=== PATIENT | female | born 1945 | race Caucasian/White ===

== ENCOUNTER 2020-12-04 08:48 | Outpatient (REF) | payer MEDICARE, OTHER, SELFPAY ==
[2020-12-04 10:51] LABS: MANUAL DIFF FLAG NO
[2020-12-04 11:00] LABS: Basophils Absolute Auto 0.1 X10*3/uL (0.0-0.2); Basophils Percent Auto 0.7 % (0-2); Eosinophils Absolute Auto 0.2 X10*3/uL (0.0-0.4); Eosinophils Percent Auto 2.3 % (0-4); Hematocrit 40.3 % (37-47); Hemoglobin 13.2 g/dl (12.0-16.0); Imm Gran Abs Auto 0.02 X10*3/uL (0.00-0.03); Imm Gran Pct Auto 0.3 % (0.0-0.4); Lymphocytes Absolute Auto 2.4 X10*3/uL (1.2-4.9); Lymphocytes Percent Auto 34.1 % (20-40); Mean Corpuscular HGB Conc 32.8 g/dl (31.0-35.0); Mean Corpuscular Hemoglobin 31.7 pg (27.0-33.0); Mean Corpuscular Volume 96.6 fL (80-98); Monocytes Absolute Auto 0.5 X10*3/uL (0.1-1.2); Monocytes Percent Auto 7.2 % (2-11); Neutrophils Absolute Auto 3.8 X10*3/uL (2.0-8.3); Neutrophils Percent Auto 55.4 % (45-73); Platelet Count 263 X10*3/uL (160-400); Red Blood Count 4.17 X10*6/uL (4.20-5.50); Red Cell Distribution Width 12.7 % (11.0-16.0); White Blood Count 6.9 X10*3/uL (4.8-10.8)
[2020-12-04 11:24] LABS: B Type Natriuretic Peptide 86 pg/mL (<100)
[2020-12-04 11:35] LABS: Alanine Aminotransferase 11 U/L (0-31); Albumin Level 4.2 g/dL (3.5-5.0); Alkaline Phosphatase 65 U/L (39-117); Anion Gap 15 (12-20); Aspartate Amino Transferase 11 U/L (5-31); Bilirubin Total 0.5 mg/dL (0.0-1.0); Blood Urea Nitrogen 20 mg/dL (9-16); Calcium 9.2 mg/dL (8.4-10.2); Carbon Dioxide 24 mmol/L (22-29); Chloride 105 mmol/L (96-108); Cholesterol 191 mg/dL; Estimated Glomerular Filt Rate > 60; Glucose Fasting 167 mg/dL (60-99); HDL Cholesterol 60 mg/dL; LDL Cholesterol Calculated 109 mg/dl; Potassium 4.3 mmol/L (3.3-5.1); Sodium 140 mmol/L (135-145); Total Protein 6.8 g/dL (6.5-8.0); Triglycerides 113 mg/dL
[2020-12-04 11:38] LABS: Creatinine Urine 92.06 mg/dL
[2020-12-04 11:39] LABS: T4 Thyroxine 6.5 ug/dL (4.5-12.0); Thyroid Stimulating Hormone 0.96 uIU/mL (0.32-4.0); Vitamin D 25-OH Total 13.4 ng/mL (>30)
[2020-12-04 12:08] LABS: Folate 19.7 ng/mL (> or = 4.0); Vitamin B12 608 pg/mL (200-900)
== END 2020-12-04 08:49 | disposition home or self-care (01) ==
LOC: HO.10HDL 08:48
PROVIDERS: Visit Provider Internal Medicine
DX: E11.65 Type 2 diabetes mellitus with hyperglycemia (principal); D12.6 Benign neoplasm of colon, unspecified; E78.00 Pure hypercholesterolemia, unspecified; I10 Essential (primary) hypertension; Z86.711 Personal history of pulmonary embolism
CPT/HCPCS: 36415; 80053; 80061; 82043; 82306; 82607; 82746; 83880; 84436; 84443; 85025

== ENCOUNTER 2021-09-28 08:14 | Outpatient (REF) | payer MEDICARE, OTHER, SELFPAY ==
[2021-09-28 10:27] LABS: Alanine Aminotransferase 12 U/L (0-31); Albumin Level 3.8 g/dL (3.5-5.0); Alkaline Phosphatase 51 U/L (39-117); Anion Gap 16 (12-20); Aspartate Amino Transferase 14 U/L (5-31); Bilirubin Total 0.5 mg/dL (0.0-1.0); Blood Urea Nitrogen 20 mg/dL (9-16); Calcium 9.5 mg/dL (8.4-10.2); Carbon Dioxide 24 mmol/L (22-29); Chloride 104 mmol/L (96-108); Cholesterol 176 mg/dL; Estimated Glomerular Filt Rate > 60; Glucose Random 146 mg/dL (60-115); HDL Cholesterol 61 mg/dL; LDL Cholesterol Calculated 92 mg/dl; Potassium 4.1 mmol/L (3.3-5.1); Sodium 140 mmol/L (135-145); Total Protein 6.6 g/dL (6.5-8.0); Triglycerides 115 mg/dL
== END 2021-09-28 08:15 | disposition home or self-care (01) ==
LOC: HO.10HDL 08:14
PROVIDERS: Visit Provider Internal Medicine
DX: E78.00 Pure hypercholesterolemia, unspecified (principal)
CPT/HCPCS: 36415; 80053; 80061

== ENCOUNTER 2022-09-23 08:10 | Outpatient (REF) | payer MEDICARE, OTHER, SELFPAY ==
[2022-09-23 10:38] LABS: MANUAL DIFF FLAG NO
[2022-09-23 10:49] LABS: Basophils Absolute Auto 0.1 X10*3/uL (0.0-0.2); Basophils Percent Auto 0.7 % (0-2); Eosinophils Absolute Auto 0.2 X10*3/uL (0.0-0.4); Hematocrit 35.8 % (37.0-47.0); Hemoglobin 11.9 g/dl (12.0-16.0); Imm Gran Abs Auto 0.02 X10*3/uL (0.00-0.03); Imm Gran Pct Auto 0.3 % (0.0-0.4); Lymphocytes Absolute Auto 2.7 X10*3/uL (1.2-4.9); Lymphocytes Percent Auto 36.7 % (20-40); Mean Corpuscular HGB Conc 33.2 g/dl (31.0-35.0); Mean Corpuscular Hemoglobin 32.7 pg (27.0-33.0); Mean Corpuscular Volume 98.4 fL (80.0-98.0); Mean Platelet Volume 10.5 fL (9.4-12.3); Monocytes Absolute Auto 0.6 X10*3/uL (0.1-1.2); Monocytes Percent Auto 8.5 % (2-11); Neutrophils Absolute Auto 3.8 x10*3/uL (2.0-8.3); Neutrophils Percent Auto 50.8 % (45-73); Platelet Count 259 X10*3/uL (160-400); Red Blood Count 3.64 X10*6/uL (4.20-5.50); Red Cell Distribution Width 12.7 % (11.0-16.0); White Blood Count 7.4 X10*3/uL (4.8-10.8)
[2022-09-23 12:22] LABS: Alanine Aminotransferase 13 U/L (0-31); Albumin Level 4.1 g/dL (3.5-5.0); Alkaline Phosphatase 49 U/L (39-117); Anion Gap 15 (12-20); Aspartate Amino Transferase 16 U/L (5-31); Bilirubin Total 0.4 mg/dL (0.0-1.0); Blood Urea Nitrogen 20 mg/dL (9-16); Calcium 9.5 mg/dL (8.4-10.2); Carbon Dioxide 24 mmol/L (22-29); Chloride 104 mmol/L (96-108); Cholesterol 181 mg/dL; Estimated Glomerular Filt Rate > 60; Glucose Random 127 mg/dL (60-115); HDL Cholesterol 68 mg/dL; LDL Cholesterol Calculated 95 mg/dl; Potassium 4.5 mmol/L (3.3-5.1); Sodium 138 mmol/L (135-145); Thyroid Stimulating Hormone 0.78 uIU/mL (0.32-4.0); Total Protein 6.7 g/dL (6.5-8.0); Triglycerides 91 mg/dL; Vitamin D 25-OH Total 36.9 ng/mL (>30)
[2022-09-23 12:33] LABS: Estimated Average Glucose 126 mg/dL; Folate 17.1 ng/mL (> or = 4.0); Vitamin B12 573 pg/mL (200-900)
[2022-09-23 18:29] LABS: Creatinine Urine 88.97 mg/dL
[2022-09-23 18:40] LABS: Microalbum/Creatinine Ratio Ur 996.9 ug/mg cr
== END 2022-09-23 08:11 | disposition home or self-care (01) ==
LOC: HO.10HDL 08:10
PROVIDERS: Visit Provider Internal Medicine
DX: E11.65 Type 2 diabetes mellitus with hyperglycemia (principal); E78.00 Pure hypercholesterolemia, unspecified; I10 Essential (primary) hypertension
CPT/HCPCS: 36415; 80053; 80061; 82043; 82306; 82607; 82746; 83036; 84443; 85025

== ENCOUNTER 2023-09-29 11:31 | Outpatient (AMB) | payer MEDICARE, OTHER, SELFPAY ==
--- NOTE | 2023-09-29 11:37 | MHC.PC.OV ---
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 Mechanic Required: No Accompanied by: Self / Same As Patient Allergies rosuvastatin Allergy (Unknown, Verified 09/29/23 11:39) Unknown tramadol Allergy (Unknown, Verified 09/29/23 11:39) joint pain Tobacco use date assessed: 09/29/23 Fall risk assessment: No Falls in past year Last assessed Fall Risk: 09/29/23 Dental Screening Dental Screen Date: 09/29/23 Did you have a dental visit in the last 12 months?: Yes Did you have a dental problem in the last 6 months where you did not have access to dental care?: No Was dental information given to patient?: Patient has dentist HPI 6 MONTH F/U HPI Details 78-year-old obese female with controlled diabetes mellitus hypertension hypercholesterolemia history of pulmonary embolism and peripheral vascular disease last seen in March 2023. Patient's mammogram is due colonoscopy is up-to-date October 2019 and declined bone density. COVID vaccine July 2023- does not get flu shots [facility] Medical History (Updated 09/29/23 @ 12:33 by Erika De La O MD) Medicare annual wellness visit, initial Facial basal cell cancer Peripheral vascular disease Hypercholesterolemia Diabetic nephropathy Gout History of pulmonary embolism DVT (deep venous thrombosis) Osteoarthritis Hypertension Type 2 diabetes mellitus with hyperglycemia Surgical History History of arthroscopy of right knee Family History Father Diabetes CVD (cardiovascular disease) Stroke Mother Hypertension Social History Housing: House Alcohol intake: current Alcohol intake frequency: 0-2 drinks per day Alcohol type: wine Patient Tobacco Use Status: Never used Tobacco e-Cigarette/Vaping Use: Never Used Second Hand Smoke Exposure: No service: No Current occupational status: retired Cognitive needs: No Hearing needs: No Vision needs: Yes Questionnaire Thrive Questionnaire Date Thrive assessed: 03/19/22 JOSEF-7 AMB Questionnaire JOSEF-7 Date JOSEF - 7 assessed: 03/22/23 Source: Developed by Drs. Yahir Jones, Shi Godfrey, Vasile Antonio and colleagues, with an educational jose francisco from [employer]. Physical exam (Primary Care) Vital Signs: Last Vital Signs Pulse 69 09/29/23 11:38 BP 180/106 H 09/29/23 11:38 Pulse Ox 98 09/29/23 11:38 Oxygen Delivery Method Room Air 09/29/23 11:38 Tobacco/Smoking Status: Tobacco use Status Tobacco use date assessed 09/29/23 09/29/23 11:40 Patient Tobacco Use Status Never used Tobacco 09/29/23 11:40 e-Cigarette/Vaping Use Never Used 09/29/23 11:40 Thrive Assessment: Date of Thrive Assessment Date Thrive assessed 03/19/22 09/29/23 11:40 Const General: alert; No acute distress Eyes Conjunctivae: conjunctivae normal Resp Auscultation: clear to auscultation bilaterally Cardio Rate: regular rate Rhythm: regular rhythm GI Inspection: Yes normal to inspection Extrem General: Yes normal to inspection and No edema Results AMB Hemoglobin A1c AMB Hemoglobin A1c 6.3 % Last Edit by Gail Nguyen on 09/29/23 11:58 Results Reviewed Results Reviewed: Laboratory Last Values Hgb A1c (Clinic) 6.3 % (4.0-6.0) H 09/29/23 11:38 Assessment and Plan Assessment & Plan (1) Type 2 diabetes mellitus with hyperglycemia: Comment: Dr. Price October, Code(s): E11.65 - Type 2 diabetes mellitus with hyperglycemia Qualifiers: Diabetes mellitus skilled nursing insulin use: without skilled nursing use Qualified Code(s): E11.65 - Type 2 diabetes mellitus with hyperglycemia Plan: Decrease the amount of carbohydrate intake, pasta, bread, rice and potatoes are all sugar and that is aside from all the sweet stuff, remember that fruits are good but they are Sweet also. Hemoglobin A1c goal of less than 7.0. Patient presently on metformin 500 mg once a day (2) Hypertension: Code(s): I10 - Essential (primary) hypertension Qualifiers: Hypertension type: essential hypertension Qualified Code(s): I10 - Essential (primary) hypertension Plan: Continue with blood pressure medication. Decrease salt intake and exercise on hydralazine 25 mg twice a day hydrochlorothiazide 25 mg once a day olmesartan 40 mg once a day discussed the concerns about blood pressure is going high this time. Will workup ultrasound of the renal vasculature as well as aldosterone. (3) History of pulmonary embolism: Comment: September 2007 Code(s): Z86.711 - Personal history of pulmonary embolism Plan: Continue with anticoagulation with Xarelto semi annual renal function test (4) Hypercholesterolemia: Code(s): E78.00 - Pure hypercholesterolemia, unspecified Plan: Avoid fried foods, chicken skin, eggs, butter margarine, pastries and meat. Be it pork or beef they have a lot of cholesterol patient takes Welchol had problems with rosuvastatin. (5) Knee pain, right: Code(s): M25.561 - Pain in right knee Plan: discussed about voltaren gel and chondroitin glucosamine Orders: Orders Complete Blood Count Auto Diff Today E11.65 - Type 2 diabetes mellitus with hyperglycemia Free T4 (Free Thyroxine) Today E11.65 - Type 2 diabetes mellitus with hyperglycemia Lipid Panel Today E11.65 - Type 2 diabetes mellitus with hyperglycemia, E78.00 - Pure hypercholesterolemia, unspecified Hemoglobin A1c Today E11.65 - Type 2 diabetes mellitus with hyperglycemia Aldost/Renin Today I10 - Essential (primary) hypertension US renal BI Today I10 - Essential (primary) hypertension US renal doppler Today I10 - Essential (primary) hypertension AMB Hemoglobin A1c Today Z13.9 - Encounter for screening, unspecified Comprehensive Met. Panel Today E11.65 - Type 2 diabetes mellitus with hyperglycemia Microalbumin, Random (w Creat) Today E11.65 - Type 2 diabetes mellitus with hyperglycemia Creatinine Urine Today E11.65 - Type 2 diabetes mellitus with hyperglycemia Thyroid Stimulating Hormone Today E11.65 - Type 2 diabetes mellitus with hyperglycemia Vitamin B12 and Folate Today E11.65 - Type 2 diabetes mellitus with hyperglycemia Vitamin D 25-OH Total Today E11.65 - Type 2 diabetes mellitus with hyperglycemia Cortisol, Free Today I10 - Essential (primary) hypertension Coding Level of Care Code Est Pt Level 4 (25019) Diagnoses Type 2 diabetes mellitus with hyperglycemia, without long-term current use of insulin E11.65 Diabetes mellitus skilled nursing insulin use: without terminal supervisor use Essential hypertension I10 Hypertension type: essential hypertension History of pulmonary embolism Z86.711 Hypercholesterolemia E78.00 Knee pain, right M25.561
[2023-09-29 11:38] VITALS: BP 180/106; PULSE 69; O2SAT 98
== END 2023-09-29 12:45 | disposition home or self-care (01) ==
PROVIDERS: PCP Internal Medicine; Visit Provider Internal Medicine
DX: E11.65 Type 2 diabetes mellitus with hyperglycemia (principal); I10 Essential (primary) hypertension; Z86.711 Personal history of pulmonary embolism; M25.561 Pain in right knee
CPT/HCPCS: 83036; 99214

== ENCOUNTER 2023-11-03 08:56 | Outpatient (REF) | payer MEDICARE, OTHER, SELFPAY ==
--- NOTE | ~2023-11-03 | US_ITS ---
EXAMINATION: ULTRASOUND RENAL WITH DOPPLER CLINICAL INFORMATION: Hypertension. COMPARISON: None. TECHNIQUE: Real-time grayscale, color Doppler, and duplex Doppler evaluation of the kidneys and renal vasculature was performed. FINDINGS: RENAL MEASUREMENTS: Right: 11.3 x 4.7 x 5.6 cm (Sag x AP x TV) Left: 10.5 x 5.5 x 4.8 cm (Sag x AP x TV) The renal parenchyma appears normal. No hydronephrosis or nephrolithiasis. DOPPLER INTERROGATION: AORTA: Mid aorta: 135 cm/sec RIGHT MAIN RENAL ARTERY: Proximal: 178 cm/sec Mid: 95 cm/sec Distal: 182 cm/sec LEFT MAIN RENAL ARTERY: Proximal: 121 cm/sec Mid: 59 cm/sec Distal: 110 cm/sec RENAL-AORTIC RATIO (RAR): Right: Not calculated due to mid aortic velocity outside of range 40-100 cm/s making RAR inaccurate. Left: Not calculated due to mid aortic velocity outside of range 40-100 cm/s making RAR inaccurate. SEGMENTAL RESISTIVE INDICES: Right: 0.58-0.84 Left: 0.62-0.82 RENAL VEINS: Right: Patent with normal waveform. Left: Patent with normal waveform. US/US renal BI IMPRESSION: Elevated right renal artery velocities suggesting stenosis. Renal lengths are symmetric. Consider further evaluation with CTA of the abdomen without and with contrast.
--- NOTE | ~2023-11-03 | US_ITS ---
EXAMINATION: ULTRASOUND RENAL WITH DOPPLER CLINICAL INFORMATION: Hypertension. COMPARISON: None. TECHNIQUE: Real-time grayscale, color Doppler, and duplex Doppler evaluation of the kidneys and renal vasculature was performed. FINDINGS: RENAL MEASUREMENTS: Right: 11.3 x 4.7 x 5.6 cm (Sag x AP x TV) Left: 10.5 x 5.5 x 4.8 cm (Sag x AP x TV) The renal parenchyma appears normal. No hydronephrosis or nephrolithiasis. DOPPLER INTERROGATION: AORTA: Mid aorta: 135 cm/sec RIGHT MAIN RENAL ARTERY: Proximal: 178 cm/sec Mid: 95 cm/sec Distal: 182 cm/sec LEFT MAIN RENAL ARTERY: Proximal: 121 cm/sec Mid: 59 cm/sec Distal: 110 cm/sec RENAL-AORTIC RATIO (RAR): Right: Not calculated due to mid aortic velocity outside of range 40-100 cm/s making RAR inaccurate. Left: Not calculated due to mid aortic velocity outside of range 40-100 cm/s making RAR inaccurate. SEGMENTAL RESISTIVE INDICES: Right: 0.58-0.84 Left: 0.62-0.82 RENAL VEINS: Right: Patent with normal waveform. Left: Patent with normal waveform. US/US renal doppler IMPRESSION: Elevated right renal artery velocities suggesting stenosis. Renal lengths are symmetric. Consider further evaluation with CTA of the abdomen without and with contrast.
== END 2023-11-03 08:57 | disposition home or self-care (01) ==
LOC: HO.US 08:56
PROVIDERS: PCP Internal Medicine; Visit Provider Internal Medicine
DX: I10 Essential (primary) hypertension (principal)
CPT/HCPCS: 76775; 93975

== ENCOUNTER 2023-12-14 09:27 | Outpatient (REF) | payer MEDICARE, OTHER, SELFPAY ==
[2023-12-15 08:50] LABS: Creatinine POC 0.8 mg/dL (0.5-1.4); GFR POC 60
== END 2023-12-14 09:28 | disposition home or self-care (01) ==
LOC: HO.CT 09:27
PROVIDERS: PCP Internal Medicine; Visit Provider Internal Medicine
DX: I70.1 Atherosclerosis of renal artery (principal)
CPT/HCPCS: 82565

== ENCOUNTER 2023-12-29 08:27 | Outpatient (REF) | payer MEDICARE, OTHER, SELFPAY ==
[2023-12-29 10:56] LABS: MANUAL DIFF FLAG NO
[2023-12-29 11:01] LABS: Basophils Absolute Auto 0.1 X10*3/uL (0.0-0.2); Basophils Percent Auto 0.7 % (0-2); Eosinophils Absolute Auto 0.1 X10*3/uL (0.0-0.4); Eosinophils Percent Auto 1.9 % (0-4); Hemoglobin 12.1 g/dl (12.0-16.0); Imm Gran Abs Auto 0.02 X10*3/uL (0.00-0.03); Imm Gran Pct Auto 0.3 % (0.0-0.4); Lymphocytes Absolute Auto 2.3 X10*3/uL (1.2-4.9); Lymphocytes Percent Auto 34.5 % (20-40); Mean Corpuscular HGB Conc 33.6 g/dl (31.0-35.0); Mean Corpuscular Hemoglobin 33.1 pg (27.0-33.0); Mean Corpuscular Volume 98.4 fL (80.0-98.0); Mean Platelet Volume 10.1 fL (9.4-12.3); Monocytes Absolute Auto 0.6 X10*3/uL (0.1-1.2); Monocytes Percent Auto 9.1 % (2-11); Neutrophils Absolute Auto 3.6 x10*3/uL (2.0-8.3); Neutrophils Percent Auto 53.5 % (45-73); Platelet Count 252 X10*3/uL (160-400); Red Blood Count 3.66 X10*6/uL (4.20-5.50); Red Cell Distribution Width 13.1 % (11.0-16.0); White Blood Count 6.7 X10*3/uL (4.8-10.8)
[2023-12-29 11:18] LABS: Estimated Average Glucose 117 mg/dL; Hemoglobin A1c % 5.7 % (<6.0)
[2023-12-29 11:38] LABS: Alanine Aminotransferase 13 U/L (0-31); Alkaline Phosphatase 50 U/L (39-117); Anion Gap 14 (12-20); Aspartate Amino Transferase 19 U/L (5-31); Bilirubin Total 0.4 mg/dL (0.0-1.0); Blood Urea Nitrogen 14 mg/dL (9-16); Calcium 9.4 mg/dL (8.4-10.2); Carbon Dioxide 24 mmol/L (22-29); Chloride 104 mmol/L (96-108); Cholesterol 174 mg/dL (<200); Estimated Glomerular Filt Rate > 60; Glucose Random 120 mg/dL (60-115); HDL Cholesterol 75 mg/dL (>40); LDL Cholesterol Calculated 86 mg/dL (<100); Potassium 4.4 mmol/L (3.3-5.1); Sodium 138 mmol/L (135-145); Total Protein 7.1 g/dL (6.5-8.0); Triglycerides 69 mg/dL (<150)
[2023-12-29 12:01] LABS: Free T4 (Free Thyroxine) 1.01 ng/dL (0.71-1.85); Thyroid Stimulating Hormone 0.88 uIU/mL (0.32-4.0); Vitamin D 25-OH Total 35.8 ng/mL (>30)
[2023-12-29 12:16] LABS: Vitamin B12 596 pg/mL (200-900)
[2024-01-10 13:49] LABS: Aldosterone/Renin Ratio 5.3 Ratio (0.9-28.9); Plasma Renin Activity 1.14 ng/mL/h (0.25-5.82)
== END 2023-12-29 08:28 | disposition home or self-care (01) ==
LOC: HO.10HDL 08:27
PROVIDERS: Visit Provider Internal Medicine
DX: E11.65 Type 2 diabetes mellitus with hyperglycemia (principal); E78.00 Pure hypercholesterolemia, unspecified; I10 Essential (primary) hypertension
CPT/HCPCS: 36415; 80053; 80061; 82088; 82306; 82530; 82607; 82746; 83036; 84439; 84443; 85025

== ENCOUNTER 2023-12-30 11:36 | Outpatient (AMB) | payer MEDICARE, OTHER, SELFPAY ==
[2023-12-30 12:05] VITALS: BP 182/98; PULSE 114; O2SAT 98
--- NOTE | 2023-12-30 12:05 | MHC.PC.OV ---
Vital Signs 12/30/23 12:05 Height 5 ft 9 in BMI Reason not done Patient refused/unable BP 182/98 H Blood Pressure Location Lt brachial Position Sitting Pulse 114 H Pulse Source Pulse Oximeter Pulse Oximetry (%) 98 Oxygen Delivery Method Room Air Intake Visit Reasons: Hypertension Allergies rosuvastatin Allergy (Unknown, Verified 12/30/23 12:07) Unknown tramadol Allergy (Unknown, Verified 12/30/23 12:07) joint pain Medication List - Last Reconciled 12/30/23 by Erika De La O MD acetaminophen (Tylenol Extra Strength) 1,000 mg PO Q6H PRN atorvastatin 80 mg PO DAILY blood sugar diagnostic As directed check the blood sugar once a day [email or web address] ULTRA TEST STRIPS cholecalciferol (vitamin D3) 50 mcg PO DAILY colesevelam (WelChol) 1,875 mg (3 x 625 mg) PO BID 90 days [email or web address],knee,reg,xlrg As directed 20-30 mm hg folic acid 1 mg PO DAILY hydralazine 25 mg PO BID hydrochlorothiazide 25 mg PO QAM hydrocodone-chlorpheniramine 10-8 mg/5 mL 5 mL PO Q12H PRN lancets (Wellpe[employer]) check the BS once a day lancets (FreeStyle Lancets) As directed check the BS QD metformin 500 mg PO DAILY olmesartan 40 mg PO DAILY rivaroxaban (Xarelto) 20 mg PO DAILY Tobacco use date assessed: 12/30/23 Fall risk assessment: No Falls in past year Last assessed Fall Risk: 12/30/23 Dental Screening Dental Screen Date: 12/30/23 Did you have a dental visit in the last 12 months?: Yes Did you have a dental problem in the last 6 months where you did not have access to dental care?: No Was dental information given to patient?: Patient has dentist HPI Hypertension HPI Details 78-year-old obese female with diabetes mellitus hypertension history of pulmonary embolism hypercholesterolemia coming in for follow-up. Last seen in September 2023 declined mammogram colonoscopy is up-to-date. Patient had an ultrasound of the kidneys showing an elevated right renal artery velocity suggesting stenosis advised to get a CTA. CTA not done due to iv cannot access now here. Patient had an unpleasant episode in the CT scan as they can not get IV access and has tried multiple/multiple/multiple times and so this was canceled. Meanwhile blood pressure remains to be elevated has a dental procedure but discussed that the dental procedure might get cancel due to blood pressure being elevated. Patient is being referred to Nephrology for options being that the ultrasound was done showing possible renal artery stenosis. Meanwhile blood work was done. [facility] Medical History (Updated 11/03/23 @ 18:15 by Erika De La O MD) Medicare annual wellness visit, initial Facial basal cell cancer Peripheral vascular disease Hypercholesterolemia Diabetic nephropathy Gout History of pulmonary embolism DVT (deep venous thrombosis) Osteoarthritis Hypertension Type 2 diabetes mellitus with hyperglycemia Surgical History History of arthroscopy of right knee Family History Father Diabetes CVD (cardiovascular disease) Stroke Mother Hypertension Social History Housing: House Alcohol intake: current Alcohol intake frequency: 0-2 drinks per day Alcohol type: wine Patient Tobacco Use Status: Never used Tobacco e-Cigarette/Vaping Use: Never Used Second Hand Smoke Exposure: No service: No Current occupational status: retired Cognitive needs: No Hearing needs: No Vision needs: Yes Questionnaire PHQ-9 Over the last 2 weeks, how often have you been bothered by any of the following problems? 1. Little interest or pleasure in doing things: not at all 2. Feeling down, depressed, or hopeless: several days 3. Trouble falling or staying asleep, or sleeping too much: not at all 4. Feeling tired or having little energy: not at all 5. Poor appetite or overeating: several days 6. Feeling bad about yourself - or that you are a failure or have let yourself or your family down: not at all 7. Trouble concentrating on things, such as reading the newspaper or watching television: not at all 8. Moving or speaking so slowly that other people could have noticed. Or the opposite - being so fidgety or restless that you have been moving around a lot more than usual: not at all 9. Thoughts that you would be better off or of hurting yourself in some way: not at all Total score: 2 Depression Screening Interpretation: Negative Depression Screening Done: Yes Source: Developed by Drs. Yahir Jones, Shi Godfrey, Vasile Antonio and colleagues, with an educational jose francisco from [employer]. Thrive Questionnaire Date Thrive assessed: 12/30/23 I am a: Patient What is your living situation today?: I have a steady place to live Within the past 12 months, did the food you bought not last and you didn't have the money to get more?: Never true Within the past 12 months, did you worry whether your food would run out before you got money to buy more?: Never true Do you have trouble paying for medicines?: No Do you have trouble getting transportation to medical appointments?: No Do you have trouble paying your heating and electricity bill?: No Do you have trouble taking care of your child, family member or friend?: No Do you have trouble with day-to-day activities such as bathing, preparing meals, shopping, managing finances, etc.?: No Are you currently unemployed and looking for a job?: No Are you interested in more education?: No Currently or been in a relationship where the following occur: no concerns reported THRIVE Score: 0 AUDIT C Alcohol Use Questionnaire (AUDIT-C) 1. How often do you have a drink containing alcohol?: Never 3. How often do you have six or more drinks on one occasion?: Never Total Score: 0 JOSEF-7 AMB Questionnaire JOSEF-7 Date JOSEF - 7 assessed: 12/30/23 Feeling nervous, anxious, or on edge: 0 = Not at all Not being able to stop or control worryin = Not at all Worrying too much about different things: 0 = Not at all Trouble relaxin = Not at all Being so restless that it is hard to sit still: 0 = Not at all Becoming easily annoyed or irritable: 0 = Not at all Feeling afraid as if something awful might happen: 0 = Not at all Total JOSEF-7 score (0-4 normal; 5-9 mild; 10-14 moderate; 15-21 severe): 0 Source: Developed by Shi Wu, Vasile Antonio and colleagues, with an educational jose francisco from [employer]. Physical exam (Primary Care) Vital Signs: Last Vital Signs Pulse 114 H 12/30/23 12:05 BP 182/98 H 12/30/23 12:05 Pulse Ox 98 12/30/23 12:05 Oxygen Delivery Method Room Air 12/30/23 12:05 Tobacco/Smoking Status: Tobacco use Status Tobacco use date assessed 12/30/23 12/30/23 12:12 Patient Tobacco Use Status Never used Tobacco 12/30/23 12:12 e-Cigarette/Vaping Use Never Used 12/30/23 12:12 PHQ-9: PHQ-9 Score PHQ-9: Total score 2 12/30/23 12:12 Depression Screening Interpretation: Negative Thrive Assessment: Date of Thrive Assessment Date Thrive assessed 12/30/23 12/30/23 12:12 Currently or been in a relationship where the following occur: no concerns reported Const General: alert; No acute distress Eyes Conjunctivae: conjunctivae normal Resp Auscultation: clear to auscultation bilaterally Cardio Rate: regular rate Rhythm: regular rhythm GI Inspection: Yes normal to inspection Extrem General: Yes normal to inspection and No edema Assessment and Plan Assessment & Plan (1) Type 2 diabetes mellitus with hyperglycemia: Comment: Dr. Price October, Code(s): E11.65 - Type 2 diabetes mellitus with hyperglycemia Qualifiers: Diabetes mellitus detention insulin use: without medical terminologist use Qualified Code(s): E11.65 - Type 2 diabetes mellitus with hyperglycemia Plan: Decrease the amount of carbohydrate intake, pasta, bread, rice and potatoes are all sugar and that is aside from all the sweet stuff, remember that fruits are good but they are Sweet also. Hemoglobin A1c goal of less than 7.0 patient on metformin 500 mg once a day (2) Hypertension: Code(s): I10 - Essential (primary) hypertension Qualifiers: Hypertension type: essential hypertension Qualified Code(s): I10 - Essential (primary) hypertension Plan: Continue with blood pressure medication. Decrease salt intake and exercise on olmesartan 40 mg once a day hydrochlorothiazide 25 mg once a day hydralazine 25 mg twice a day. Workup showed a question of right renal artery stenosis has been advised to have CTA but this was not successful due to no IV access. (3) Hypercholesterolemia: Code(s): E78.00 - Pure hypercholesterolemia, unspecified Plan: Avoid fried foods, chicken skin, eggs, butter margarine, pastries and meat. Be it pork or beef they have a lot of cholesterol presently on atorvastatin 80 mg once a day LDL goal of less than 100 (4) Right renal artery stenosis: Code(s): I70.1 - Atherosclerosis of renal artery Plan: Patient was advised to get a workup for CT scan. Will do a referral to Nephrology for options. Orders: Referrals Nephrology Referral I70.1 - Atherosclerosis of renal artery Coding Level of Care Code Est Pt Level 4 (01273) Diagnoses Type 2 diabetes mellitus with hyperglycemia, without long-term current use of insulin E11.65 Diabetes mellitus detention insulin use: without medical terminologist use Essential hypertension I10 Hypertension type: essential hypertension Hypercholesterolemia E78.00 Right renal artery stenosis I70.1
== END 2023-12-30 12:58 | disposition home or self-care (01) ==
PROVIDERS: PCP Internal Medicine; Visit Provider Internal Medicine
DX: E11.65 Type 2 diabetes mellitus with hyperglycemia (principal); I10 Essential (primary) hypertension; E78.00 Pure hypercholesterolemia, unspecified; I70.1 Atherosclerosis of renal artery
CPT/HCPCS: 99214

== ENCOUNTER 2024-01-24 13:32 | Outpatient (AMB) | payer MEDICARE, OTHER, SELFPAY ==
[2024-01-24 13:34] VITALS: BP 170/98; PULSE 138; O2SAT 98; BMI 28.4
--- NOTE | 2024-01-24 13:34 | HO.NEPHOV_ITS ---
HPI HPI Comments History of Present Illness Details Gillian is a elderly woman with a history of longstanding hypertension. She is on 3 medications including hydralazine 25 mg b.i.d., Benicar 40 mg q.d. and HCTZ 25 mg. In spite of this blood pressure has been difficult to control. She had renal ultrasonogram which was suggestive of right-sided renal artery stenosis based on increased resistance. CT scan was ordered. However the posterior was not completed due to the inability to obtain IV access. After multiple attempts the venipuncture was abandoned and she was sent home. She has significant history of anxiety with high blood pressure. She has not checked her blood pressure at home. Apparently in the past she has had a 24 hour ABP M. I do not have access to the results. No headache nausea vomiting. No fever She has lost about 25 lb and her appetite has decreased. All the recent blood work was reviewed. This is a family history of diabetes mellitus. 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 [facility] Medical History Medicare annual wellness visit, initial Facial basal cell cancer Peripheral vascular disease Hypercholesterolemia Diabetic nephropathy Gout History of pulmonary embolism DVT (deep venous thrombosis) Osteoarthritis Hypertension Type 2 diabetes mellitus with hyperglycemia Surgical History History of arthroscopy of right knee Family History Father Diabetes CVD (cardiovascular disease) Stroke Mother Hypertension Social History Housing: House Alcohol intake: current Alcohol intake frequency: 0-2 drinks per day Alcohol type: wine Patient Tobacco Use Status: Never used Tobacco e-Cigarette/Vaping Use: Never Used Second Hand Smoke Exposure: No service: No Current occupational status: retired Cognitive needs: No Hearing needs: No Vision needs: Yes Vital Signs 01/24/24 13:34 Height 5 ft 9 in Weight 192 lb BMI 28.4 BP 170/98 H Blood Pressure Location Lt brachial Position Sitting Pulse 138 H Pulse Source Pulse Oximeter Pulse Oximetry (%) 98 Oxygen Delivery Method Room Air Physical Exam Vital Signs: Last Vital Signs Pulse 138 H 04/09/24 13:34 BP 170/98 H 04/09/24 13:34 Pulse Ox 98 01/24/24 13:34 Oxygen Delivery Method Room Air 01/24/24 13:34 BMI result Body Mass Index 28.4 Repeat blood pressure 180/90 mm Hg sitting and 180/90 mm Hg standing. Asymptomatic Const General: healthy appearing and anxious Nutritional Appearance: well nourished Orientation/consciousness: patient oriented x3 HEENT Head: No normal to inspection Mouth: moist mucous membranes Neck Neck: Yes supple and Yes no JVD Resp Auscultation: clear to auscultation bilaterally, no rales and rub present Cardio Jugular venous distension: no JVD Palpation: no palpable S3 and no palpable S4 Heart sounds: no rubs GI Palpation (GI): Soft to palpation and nontender Percussion: No Fluid wave present General: Yes no CVA tenderness Back/Spine/Pelvis Back: no CVA tenderness Skin General skin exam: no rashes or lesions noted Neuro General: patient oriented x3 Extrem General: Yes no pedal edema and No clubbing Assessment & Plan Assessment & Plan (1) Hypertension: Code(s): I10 - Essential (primary) hypertension Qualifiers: Hypertension type: essential hypertension Qualified Code(s): I10 - Essential (primary) hypertension Plan Elderly woman with resistant hypertension. Doppler of renal arteries was suggestive of possible right renal artery stenosis. PA and PRA ratios were normal. Not suggestive of hyperaldosteronism or renal artery stenosis. First step would be to rule out white coat hypertension in this elderly woman with significant anxiety. I have asked her to monitor her blood pressure at home for next 1 week. Based on this we can consider a 24 hour ABP him. If the home blood pressure readings are elevated we will proceed with further workup including a CT angiogram or an MRA of renal arteries. In the meantime I have asked her to stay on low-sodium diet. We will continue with the current medications. Based on home blood pressure readings I will be adjusting her medications. I have reassured her. Answered all her questions. Coding Level of Care Code New Pt Level 4 (64680) Diagnoses Essential hypertension I10 Hypertension type: essential hypertension Results Reviewed Nephrology Results: Hgb 12.1 g/dl (12.0-16.0) 12/29/23 WBC 6.7 X10*3/uL (4.8-10.8) 12/29/23 Plt Count 252 X10*3/uL (160-400) 12/29/23 Sodium 138 mmol/L (135-145) 12/29/23 Potassium 4.4 mmol/L (3.3-5.1) 12/29/23 Chloride 104 mmol/L (96-108) 12/29/23 Carbon Dioxide 24 mmol/L (22-29) 12/29/23 BUN 14 mg/dL (9-16) 12/29/23 Creatinine 0.64 mg/dL (0.5-1.4) 12/29/23 Calcium 9.4 mg/dL (8.4-10.2) 12/29/23 Urine Creatinine 88.97 mg/dL 09/23/22 Renal US 11/03/23
== END 2024-01-24 14:07 | disposition home or self-care (01) ==
PROVIDERS: PCP Internal Medicine; Referring Provider Internal Medicine; Visit Provider Internal Medicine Hypertension Specialist
DX: I10 Essential (primary) hypertension (principal)
CPT/HCPCS: 99204

== ENCOUNTER → 2024-01-24 13:32 | Outpatient (BNVA) | payer MEDICARE, OTHER, SELFPAY | PROVIDERS: PCP Internal Medicine; Referring Provider Internal Medicine; Visit Provider Internal Medicine Hypertension Specialist | DX: I10 Essential (primary) hypertension (principal) | CPT/HCPCS: 99202 ==

== ENCOUNTER 2024-01-31 14:44 | Outpatient (AMB) | payer MEDICARE, OTHER, SELFPAY ==
[2024-01-31 14:46] VITALS: BP 198/118; PULSE 97; O2SAT 96; BMI 27.8
--- NOTE | 2024-01-31 14:46 | HO.NEPHOV ---
HPI HPI Comments History of Present Illness Details Gillian is a pleasant 78 yr old woman with a history of longstanding hypertension. She is on 3 medications including hydralazine 25 mg b.i.d., Benicar 40 mg q.d. and HCTZ 25 mg. In spite of this blood pressure has been difficult to control. She had renal ultrasonogram which was suggestive of right-sided renal artery stenosis based on increased resistance. CT scan was ordered. However the posterior was not completed due to the inability to obtain IV access. After multiple attempts the venipuncture was abandoned and she was sent home. She has significant history of anxiety with high blood pressure. She has not checked her blood pressure at home. Apparently in the past she has had a 24 hour ABP M. I do not have access to the results. No headache nausea vomiting. No fever She has lost about 25 lb and her appetite has decreased. All the recent blood work was reviewed. This is a family history of diabetes mellitus. 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 01/31/24 Currently having allergic symptoms She has monitored her BP at home and readings are sub optimal [facility] Medical History Medicare annual wellness visit, initial Facial basal cell cancer Peripheral vascular disease Hypercholesterolemia Diabetic nephropathy Gout History of pulmonary embolism DVT (deep venous thrombosis) Osteoarthritis Hypertension Type 2 diabetes mellitus with hyperglycemia Surgical History History of arthroscopy of right knee Family History Father Diabetes CVD (cardiovascular disease) Stroke Mother Hypertension Social History Housing: House Alcohol intake: current Alcohol intake frequency: 0-2 drinks per day Alcohol type: wine Patient Tobacco Use Status: Never used Tobacco e-Cigarette/Vaping Use: Never Used Second Hand Smoke Exposure: No service: No Current occupational status: retired Cognitive needs: No Hearing needs: No Vision needs: Yes Vital Signs 01/31/24 14:46 Height 5 ft 9 in Weight 188 lb BMI 27.8 BP 198/118 H Blood Pressure Location Lt brachial Position Sitting Pulse 97 Pulse Source Pulse Oximeter Pulse Oximetry (%) 96 Oxygen Delivery Method Room Air Physical Exam Vital Signs: Last Vital Signs Pulse 97 01/31/24 14:46 BP 198/118 H 01/31/24 14:46 Pulse Ox 96 01/31/24 14:46 Oxygen Delivery Method Room Air 01/31/24 14:46 BMI result Body Mass Index 27.8 Assessment & Plan Assessment & Plan (1) Hypertension: Code(s): I10 - Essential (primary) hypertension Qualifiers: Hypertension type: essential hypertension Qualified Code(s): I10 - Essential (primary) hypertension Plan 78 yr old woman with resistant hypertension. Doppler of renal arteries was suggestive of possible right renal artery stenosis. PA and PRA ratios were normal. Not suggestive of hyperaldosteronism or renal artery stenosis. Superimposed white coat effect superimposed on underlying HTN is still a possibility ;Contributing factor would be anxiety. Work up in progress DC HCTZ Add Aldactazide 25-25 1 a day Would titrate the dose of Hydralazine based on BP readings Goal is to GRADUALLY lower her BP and avoid rapid drops If BP is difficult to control wth meds, we will proceed with further workup including a CT angiogram or an MRA of renal arteries. Needs to stay on low-sodium diet. Prescribed Christel for allergic symptoms Orders: Orders Metanephrines, Plasma Today I10 - Essential (primary) hypertension Metanephrines, Random Urine Today I10 - Essential (primary) hypertension Creatinine Urine Today I10 - Essential (primary) hypertension, N05.9 - Unspecified nephritic syndrome with unspecified morphologic changes Aldost/Renin Today I10 - Essential (primary) hypertension Medications: New spironolacton-hydrochlorothiaz 25-25 mg 1 tab PO DAILY 30 tabs 1RF fexofenadine (Christel Allergy) 60 mg PO DAILY 14 tabs 0RF Discontinued hydrochlorothiazide Discontinued Reason: Doctor's Order 25 mg PO QAM 90 tabs 3RF hydrocodone-chlorpheniramine 10-8 mg/5 mL Discontinued Reason: Patient no longer taking 5 mL PO Q12H PRN 70 mL 0RF cough Coding Level of Care Code Est Pt Level 4 (40002) Diagnoses Essential hypertension I10 Hypertension type: essential hypertension Results Reviewed Nephrology Results: Hgb 12.1 g/dl (12.0-16.0) 12/29/23 WBC 6.7 X10*3/uL (4.8-10.8) 12/29/23 Plt Count 252 X10*3/uL (160-400) 12/29/23 Sodium 138 mmol/L (135-145) 12/29/23 Potassium 4.4 mmol/L (3.3-5.1) 12/29/23 Chloride 104 mmol/L (96-108) 12/29/23 Carbon Dioxide 24 mmol/L (22-29) 12/29/23 BUN 14 mg/dL (9-16) 12/29/23 Creatinine 0.64 mg/dL (0.5-1.4) 12/29/23 Calcium 9.4 mg/dL (8.4-10.2) 12/29/23 Urine Creatinine 88.97 mg/dL 09/23/22 Renal US 11/03/23
== END 2024-01-31 15:05 | disposition home or self-care (01) ==
PROVIDERS: PCP Internal Medicine; Visit Provider Internal Medicine Hypertension Specialist
DX: I10 Essential (primary) hypertension (principal)
CPT/HCPCS: 99214

== ENCOUNTER → 2024-01-31 14:44 | Outpatient (BNVA) | payer MEDICARE, OTHER, SELFPAY | PROVIDERS: PCP Internal Medicine; Visit Provider Internal Medicine Hypertension Specialist | DX: I10 Essential (primary) hypertension (principal) | CPT/HCPCS: 99212 ==

== ENCOUNTER 2024-02-13 11:35 | Outpatient (REF) | payer MEDICARE, OTHER, SELFPAY ==
[2024-02-18 05:54] LABS: Metanephrine, Free 47 pg/mL (<=57); Normetanephrines, Free 107 pg/mL (<=148); Total Metanephrine, Free 154 pg/mL (<=205)
[2024-02-18 15:23] LABS: Creatinine Random Urine 53 mg/dL (20-275); Metanephrine, Free Rand Ur 179 mcg/g cr (21-153); Normetanephrine, Free Rand Ur 405 mcg/g cr (108-524); Total Metanephrine, Free RU 584 mcg/g cr (149-603)
[2024-02-21 13:34] LABS: Aldosterone/Renin Ratio 1.6 Ratio (0.9-28.9); Plasma Renin Activity 4.46 ng/mL/h (0.25-5.82)
== END 2024-02-13 11:36 | disposition home or self-care (01) ==
LOC: HO.10HDL 11:35
PROVIDERS: Visit Provider Internal Medicine Hypertension Specialist
DX: I10 Essential (primary) hypertension (principal); N05.9 Unspecified nephritic syndrome with unspecified morphologic changes
CPT/HCPCS: 36415; 82088; 82570; 83835

== ENCOUNTER 2024-02-14 11:43 | Outpatient (AMB) | payer MEDICARE, OTHER, SELFPAY ==
[2024-02-14 11:47] VITALS: BP 192/80; PULSE 82; O2SAT 99; BMI 27.0
--- NOTE | 2024-02-14 11:47 | HO.NEPHOV_ITS ---
Vital Signs 02/14/24 11:47 Height 5 ft 9 in Weight 183 lb BMI 27.0 BP 192/80 H Blood Pressure Location Lt brachial Position Sitting Pulse 82 Pulse Source Pulse Oximeter Pulse Oximetry (%) 99 Oxygen Delivery Method Room Air Intake Visit Reasons: Hypertension/ 2 weeks fu/ Confirmed [employer] Required: No Accompanied by: Self / Same As Patient Allergies rosuvastatin Allergy (Unknown, Verified 02/14/24 11:51) Unknown tramadol Allergy (Unknown, Verified 02/14/24 11:51) joint pain HPI Comments Details: Gillian is a pleasant 78 yr old woman with a history of longstanding hypertension. She is on 3 medications including hydralazine 25 mg b.i.d., Benicar 40 mg q.d. and HCTZ 25 mg. In spite of this blood pressure has been difficult to control. She had renal ultrasonogram which was suggestive of right-sided renal artery stenosis based on increased resistance. CT scan was ordered. However the posterior was not completed due to the inability to obtain IV access. After multiple attempts the venipuncture was abandoned and she was sent home. She has significant history of anxiety with high blood pressure. She has not checked her blood pressure at home. Apparently in the past she has had a 24 hour ABP M. I do not have access to the results. No headache nausea vomiting. No fever She has lost about 25 lb and her appetite has decreased. All the recent blood work was reviewed. This is a family history of diabetes mellitus. 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 01/31/24 Currently having allergic symptoms She has monitored her BP at home and readings are sub optimal 02/14/2024. Gillian called me last week with elevated blood pressure readings. She is tolerating Aldactazide. I increased hydralazine from 25 mg b.i.d. up to 50 mg t.i.d.. She has been watching her blood pressure at home and blood pressure is better controlled with a systolic blood pressure around 160-140 mm Hg. She has lost about 10 lb in the last 1 month [facility] Medical History Medicare annual wellness visit, initial Facial basal cell cancer Peripheral vascular disease Hypercholesterolemia Diabetic nephropathy Gout History of pulmonary embolism DVT (deep venous thrombosis) Osteoarthritis Hypertension Type 2 diabetes mellitus with hyperglycemia Surgical History History of arthroscopy of right knee Family History Father Diabetes CVD (cardiovascular disease) Stroke Mother Hypertension Social History Housing: House Alcohol intake: current Alcohol intake frequency: 0-2 drinks per day Alcohol type: wine Patient Tobacco Use Status: Never used Tobacco e-Cigarette/Vaping Use: Never Used Second Hand Smoke Exposure: No service: No Current occupational status: retired Cognitive needs: No Hearing needs: No Vision needs: Yes Physical Exam Vital Signs: Last Vital Signs Pulse 82 02/14/24 11:47 BP 192/80 H 02/14/24 11:47 Pulse Ox 99 02/14/24 11:47 Oxygen Delivery Method Room Air 02/14/24 11:47 BMI result Body Mass Index 27.0 Repeat blood pressure 180/90 mm Hg sitting and 180/90 mm Hg standing. Asymptomatic Const General: healthy appearing and anxious Nutritional Appearance: well nourished Orientation/consciousness: patient oriented x3 HEENT Head: No normal to inspection Mouth: moist mucous membranes Neck Neck: Yes supple and Yes no JVD Resp Auscultation: clear to auscultation bilaterally, no rales and rub present Cardio Jugular venous distension: no JVD Palpation: no palpable S3 and no palpable S4 Heart sounds: no rubs GI Palpation (GI): Soft to palpation and nontender Percussion: No Fluid wave present General: Yes no CVA tenderness Back/Spine/Pelvis Back: no CVA tenderness Skin General skin exam: no rashes or lesions noted Neuro General: patient oriented x3 Extrem General: Yes no pedal edema and No clubbing Results Reviewed Nephrology Results: Hgb 12.1 g/dl (12.0-16.0) 12/29/23 WBC 6.7 X10*3/uL (4.8-10.8) 12/29/23 Plt Count 252 X10*3/uL (160-400) 12/29/23 Sodium 138 mmol/L (135-145) 12/29/23 Potassium 4.4 mmol/L (3.3-5.1) 12/29/23 Chloride 104 mmol/L (96-108) 12/29/23 Carbon Dioxide 24 mmol/L (22-29) 12/29/23 BUN 14 mg/dL (9-16) 12/29/23 Creatinine 0.64 mg/dL (0.5-1.4) 12/29/23 Calcium 9.4 mg/dL (8.4-10.2) 12/29/23 Urine Creatinine 52.90 mg/dL 02/13/24 Renal US 11/03/23 Assessment & Plan Assessment & Plan (1) Right renal artery stenosis: Code(s): I70.1 - Atherosclerosis of renal artery Category: Medical (2) Hypertension: Code(s): I10 - Essential (primary) hypertension Category: Medical Qualifiers: Hypertension type: essential hypertension Qualified Code(s): I10 - Essential (primary) hypertension Plan 78 yr old woman with resistant hypertension. Doppler of renal arteries was suggestive of possible right renal artery stenosis. PA and PRA ratios were normal. Not suggestive of hyperaldosteronism or renal artery stenosis. Superimposed white coat effect superimposed on underlying HTN is still a possibility ;Contributing factor would be anxiety. Work up in progress Repeat PA/PRA and metanephrine levels are pending Keep Aldactazide 25-25 1 a day Hydralazine 50 mg t.i.d. for now. Over the next few weeks I will increase hydralazine if needed. If BP is difficult to control [facility] meds, we will proceed with further workup including a CT angiogram or an MRA of renal arteries. Needs to stay on low-sodium diet. Christel for allergic symptoms Monitor weight and she may require further workup if it loss continue Coding Level of Care Code Est Pt Level 4 (36156) Diagnoses Right renal artery stenosis I70.1 Essential hypertension I10 Hypertension type: essential hypertension
== END 2024-02-14 12:18 | disposition home or self-care (01) ==
PROVIDERS: PCP Internal Medicine; Visit Provider Internal Medicine Hypertension Specialist
DX: I70.1 Atherosclerosis of renal artery (principal); I10 Essential (primary) hypertension
CPT/HCPCS: 99214

== ENCOUNTER → 2024-02-14 11:43 | Outpatient (BNVA) | payer MEDICARE, OTHER, SELFPAY | PROVIDERS: PCP Internal Medicine; Visit Provider Internal Medicine Hypertension Specialist | DX: I70.1 Atherosclerosis of renal artery (principal); I10 Essential (primary) hypertension | CPT/HCPCS: 99212 ==

== ENCOUNTER 2024-03-13 12:12 | Outpatient (AMB) | payer MEDICARE, OTHER, SELFPAY ==
--- NOTE | 2024-03-13 12:12 | HO.NEPHOV ---
Vital Signs 03/13/24 12:13 Height 5 ft 9 in Weight 182 lb BMI 26.9 BP 182/78 H Blood Pressure Location Lt brachial Position Sitting Pulse 80 Pulse Source Pulse Oximeter Pulse Oximetry (%) 97 Oxygen Delivery Method Room Air Intake Visit Reasons: Hypertension/ 1 MO FU/ Confirmed [employer] Required: No Accompanied by: Self / Same As Patient Allergies rosuvastatin Allergy (Unknown, Verified 03/13/24 12:14) Unknown tramadol Allergy (Unknown, Verified 03/13/24 12:14) joint pain HPI Comments Details: Gillian is a pleasant 78 yr old woman with a history of longstanding hypertension. She is on 3 medications including hydralazine 25 mg b.i.d., Benicar 40 mg q.d. and HCTZ 25 mg. In spite of this blood pressure has been difficult to control. She had renal ultrasonogram which was suggestive of right-sided renal artery stenosis based on increased resistance. CT scan was ordered. However the posterior was not completed due to the inability to obtain IV access. After multiple attempts the venipuncture was abandoned and she was sent home. She has significant history of anxiety with high blood pressure. She has not checked her blood pressure at home. Apparently in the past she has had a 24 hour ABP M. I do not have access to the results. No headache nausea vomiting. No fever She has lost about 25 lb and her appetite has decreased. All the recent blood work was reviewed. This is a family history of diabetes mellitus. 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 01/31/24 Currently having allergic symptoms She has monitored her BP at home and readings are sub optimal 02/14/2024. Gillian called me last week with elevated blood pressure readings. She is tolerating Aldactazide. I increased hydralazine from 25 mg b.i.d. up to 50 mg t.i.d.. She has been watching her blood pressure at home and blood pressure is better controlled with a systolic blood pressure around 160-140 mm Hg. She has lost about 10 lb in the last 1 month 03/13/24 She is feeling better today. No more allergy symptoms. She completed dose of fexofenadine. After stopping the fexofenadine the nausea is improved. She has been monitoring blood pressure at home. Overall systolic blood pressure is around 140-140 mm Hg. Occasionally readings have been as low as 117 mm Hg systolic. [facility] Medical History Medicare annual wellness visit, initial Facial basal cell cancer Peripheral vascular disease Hypercholesterolemia Diabetic nephropathy Gout History of pulmonary embolism DVT (deep venous thrombosis) Osteoarthritis Hypertension Type 2 diabetes mellitus with hyperglycemia Surgical History History of arthroscopy of right knee Family History Father Diabetes CVD (cardiovascular disease) Stroke Mother Hypertension Social History Housing: House Alcohol intake: current Alcohol intake frequency: 0-2 drinks per day Alcohol type: wine Patient Tobacco Use Status: Never used Tobacco e-Cigarette/Vaping Use: Never Used Second Hand Smoke Exposure: No service: No Current occupational status: retired Cognitive needs: No Hearing needs: No Vision needs: Yes Physical Exam Vital Signs: BMI result Body Mass Index 26.9 Repeat blood pressure 180/90 mm Hg sitting and 180/90 mm Hg standing. Asymptomatic Const General: healthy appearing and anxious Nutritional Appearance: well nourished Orientation/consciousness: patient oriented x3 HEENT Head: No normal to inspection Mouth: moist mucous membranes Neck Neck: Yes supple and Yes no JVD Resp Auscultation: clear to auscultation bilaterally, no rales and rub present Cardio Jugular venous distension: no JVD Palpation: no palpable S3 and no palpable S4 Heart sounds: no rubs GI Palpation (GI): Soft to palpation and nontender Percussion: No Fluid wave present General: Yes no CVA tenderness Back/Spine/Pelvis Back: no CVA tenderness Skin General skin exam: no rashes or lesions noted Neuro General: patient oriented x3 Extrem General: Yes no pedal edema and No clubbing Results Reviewed Nephrology Results: Hgb 12.1 g/dl (12.0-16.0) 12/29/23 WBC 6.7 X10*3/uL (4.8-10.8) 12/29/23 Plt Count 252 X10*3/uL (160-400) 12/29/23 Sodium 138 mmol/L (135-145) 03/14/24 Potassium 4.4 mmol/L (3.3-5.1) 12/29/23 Chloride 104 mmol/L (96-108) 12/29/23 Carbon Dioxide 24 mmol/L (22-29) 12/29/23 BUN 14 mg/dL (9-16) 12/29/23 Creatinine 0.64 mg/dL (0.5-1.4) 12/29/23 Calcium 9.4 mg/dL (8.4-10.2) 12/29/23 Urine Creatinine 52.90 mg/dL 02/13/24 Renal US 11/03/23 Assessment & Plan Assessment & Plan (1) Right renal artery stenosis: Code(s): I70.1 - Atherosclerosis of renal artery Category: Medical (2) Hypertension: Code(s): I10 - Essential (primary) hypertension Category: Medical Qualifiers: Hypertension type: essential hypertension Qualified Code(s): I10 - Essential (primary) hypertension Plan . 78 yr old woman with resistant hypertension. Doppler of renal arteries was suggestive of possible right renal artery stenosis. PA and PRA ratios were normal. Not suggestive of hyperaldosteronism or renal artery stenosis. Superimposed white coat effect superimposed on underlying HTN is still a possibility ;Contributing factor would be anxiety. Repeat PA/PRA and metanephrine levels are pending Keep Aldactazide 25-25 1 a day Hydralazine 50 mg t.i.d. for now. If BP is difficult to control [facility] meds, we will proceed with further workup including a CT angiogram or an MRA of renal arteries. We discussed CT angiogram and she wants to wait on this. Due to anxiety and claustrophobia we will hold off on MRA at this time. Needs to stay on low-sodium diet. Encouraged her to continue monitoring of blood pressure at home. I will be happy to maintain systolic blood pressure around 140 -150 mm Hg for now. Would certainly avoid blood pressures in the range of 110 since he has not able to tolerate this at this time. I have asked her to call me with a systolic blood pressure stays above 160 mm Hg. Given the history of nausea I will check the serum electrolytes and renal function, especially since she is on hydrochlorothiazide. . Orders: Orders Basic Metabolic Panel Today I10 - Essential (primary) hypertension, I70.1 - Atherosclerosis of renal artery Medications: Changed From hydralazine 50 mg PO TID I10 - Essential (primary) hypertension To hydralazine 50 mg PO TID 90 tabs 2RF I10 - Essential (primary) hypertension Discontinued fexofenadine Discontinued Reason: Doctor's Order 60 mg PO DAILY 14 tabs 0RF Coding Level of Care Code Est Pt Level 4 (55702) Diagnoses Right renal artery stenosis I70.1 Essential hypertension I10 Hypertension type: essential hypertension
[2024-03-13 12:13] VITALS: BP 182/78; PULSE 80; O2SAT 97; BMI 26.9
== END 2024-03-13 12:35 | disposition home or self-care (01) ==
PROVIDERS: PCP Internal Medicine; Visit Provider Internal Medicine Hypertension Specialist
DX: I70.1 Atherosclerosis of renal artery (principal); I10 Essential (primary) hypertension
CPT/HCPCS: 99214

== ENCOUNTER → 2024-03-13 12:12 | Outpatient (BNVA) | payer MEDICARE, OTHER, SELFPAY | PROVIDERS: PCP Internal Medicine; Visit Provider Internal Medicine Hypertension Specialist | DX: I70.1 Atherosclerosis of renal artery (principal); I10 Essential (primary) hypertension | CPT/HCPCS: 99212 ==

== ENCOUNTER 2024-04-25 10:05 | Outpatient (AMB) | payer MEDICARE, OTHER, SELFPAY ==
[2024-04-25 10:14] VITALS: BP 180/80; PULSE 87; O2SAT 98
--- NOTE | 2024-04-25 10:14 | A.OFFPC_ITS ---
Vital Signs 04/25/24 10:14 Height 5 ft 9 in BMI Reason not done Patient refused/unable BP 180/80 H Blood Pressure Location Lt brachial Position Sitting Pulse 87 Pulse Source Pulse Oximeter Pulse Oximetry (%) 98 Oxygen Delivery Method Room Air Intake Visit Reasons: Hypertension, diabetes hypercholesterolemia Weight Calculator: Not Required per policy Accompanied by: Self / Same As Patient Allergies rosuvastatin Allergy (Unknown, Verified 04/25/24 10:14) Unknown tramadol Allergy (Unknown, Verified 04/25/24 10:14) joint pain Tobacco use date assessed: 12/30/23 Fall risk assessment: No Falls in past year Last assessed Fall Risk: 04/25/24 Dental Screening Dental Screen Date: 12/30/23 HPI Hypertension, diabetes hypercholesterolemia HPI Details 78-year-old female with controlled diabe riky mellitus hypertension hypercholesterolemia coming in for follow-up. Last seen in 12/2023 and concerns about resistant hypertension. Patient was advised to get CT scan to check for renal artery stenosis but could not tolerate the contrast. Patient has been referred to Nephrology. Noted blood pressure readings has been 140-170 systolic blood pressure and normal diastolic blood pressure.. Nephrology notes appreciated seen 06/05/2024 concern about right renal artery stenosis suggestive of possible right renal artery stenosis on Dopplers no suggestion of hyperaldosteronism. Superimposed white coat effect Aldactazide 25-25 once a day hydralazine 50 mg 3 times a day low-sodium diet goal for blood pressure is 1 40- 150 systolic blood pressure. BP has been doing good [facility] Medical History Medicare annual wellness visit, initial Facial basal cell cancer Peripheral vascular disease Hypercholesterolemia Diabetic nephropathy Gout History of pulmonary embolism DVT (deep venous thrombosis) Osteoarthritis Hypertension Type 2 diabetes mellitus with hyperglycemia Surgical History History of arthroscopy of right knee Family History Father Diabetes CVD (cardiovascular disease) Stroke Mother Hypertension Social History Housing: House Alcohol intake: current Alcohol intake frequency: 0-2 drinks per day Alcohol type: wine Patient Tobacco Use Status: Never used Tobacco e-Cigarette/Vaping Use: Never Used Second Hand Smoke Exposure: No service: No Current occupational status: retired Cognitive needs: No Hearing needs: No Vision needs: Yes Questionnaire Thrive Questionnaire Date Thrive assessed: 12/30/23 JOSEF-7 AMB Questionnaire JOSEF-7 Date JOSEF - 7 assessed: 12/30/23 Source: Developed by Drs. Yahir Jones, Shi Godfrey, Vasile Antonio and colleagues, with an educational jose francisco from [employer]. Physical exam (Primary Care) Vital Signs: Last Vital Signs Pulse 87 04/25/24 10:14 BP 180/80 H 04/25/24 10:14 Pulse Ox 98 04/25/24 10:14 Oxygen Delivery Method Room Air 04/25/24 10:14 Tobacco/Smoking Status: Tobacco use Status Tobacco use date assessed 12/30/23 04/25/24 10:15 Patient Tobacco Use Status Never used Tobacco 04/25/24 10:15 e-Cigarette/Vaping Use Never Used 04/25/24 10:15 Thrive Assessment: Date of Thrive Assessment Date Thrive assessed 12/30/23 04/25/24 10:15 Const General: alert; No acute distress Eyes Conjunctivae: conjunctivae normal Resp Auscultation: clear to auscultation bilaterally Cardio Rate: regular rate Rhythm: regular rhythm GI Inspection: Yes normal to inspection Extrem General: Yes normal to inspection and No edema Results AMB Hemoglobin A1c AMB Hemoglobin A1c 5.5 % Last Edit by HONORIO Abreu on 04/25/24 10:48 Results Reviewed Results Reviewed: Laboratory Last Values Hgb A1c (Clinic) 5.5 % (4.0-6.0) 04/25/24 10:15 Assessment and Plan Assessment & Plan (1) Type 2 diabetes mellitus with hyperglycemia: Comment: Dr. 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 Hemoglobin A1c goal of less than 7.0 on metformin 500 mg once a day (2) Hypercholesterolemia: Code(s): E78.00 - Pure hypercholesterolemia, unspecified Plan: Avoid fried foods, chicken skin, eggs, butter margarine, pastries and meat. Be it pork or beef they have a lot of cholesterol LDL goal of less than 100 and triglyceride of less than 150 on atorvastatin 80 mg once a day and Welchol (3) Hypertension: Code(s): I10 - Essential (primary) hypertension Qualifiers: Hypertension type: essential hypertension Qualified Code(s): I10 - Essential (primary) hypertension Plan: Continue with blood pressure medication. Decrease salt intake and exercise patient has seen Nephrology continuing to monitor on hydralazine 50 mg 3 times a day olmesartan 10 mg once a day and spironolactone/hydrochlorothiazide 03/05/2025 once a day (4) History of pulmonary embolism: Comment: September 2007 Code(s): Z86.711 - Personal history of pulmonary embolism Plan: Continue with anticoagulation renal function testing Orders: Orders AMB Hemoglobin A1c Today E11.65 - Type 2 diabetes mellitus with hyperglycemia Complete Blood Count Auto Diff Today E11.65 - Type 2 diabetes mellitus with hyperglycemia Comprehensive Met. Panel Today E11.65 - Type 2 diabetes mellitus with hyperglycemia Hemoglobin A1c Today E11.65 - Type 2 diabetes mellitus with hyperglycemia Free T4 (Free Thyroxine) Today E11.65 - Type 2 diabetes mellitus with hyperglycemia Thyroid Stimulating Hormone Today E11.65 - Type 2 diabetes mellitus with hyperglycemia Lipid Panel Today E11.65 - Type 2 diabetes mellitus with hyperglycemia, E78.00 - Pure hypercholesterolemia, unspecified Medications: Refilled folic acid 1 mg PO DAILY 90 tabs 3RF E11.65 - Type 2 diabetes mellitus with hyperglycemia metformin 500 mg PO DAILY 90 tabs 3RF E11.65 - Type 2 diabetes mellitus with hyperglycemia Coding Level of Care Code Est Pt Level 4 (29286) Diagnoses Type 2 diabetes mellitus with hyperglycemia, without long-term current use of insulin E11.65 Diabetes mellitus fdc insulin use: without fdc use Hypercholesterolemia E78.00 Essential hypertension I10 Hypertension type: essential hypertension History of pulmonary embolism Z86.711
== END 2024-04-25 11:03 | disposition home or self-care (01) ==
PROVIDERS: PCP Internal Medicine; Visit Provider Internal Medicine
DX: E11.65 Type 2 diabetes mellitus with hyperglycemia (principal); E78.00 Pure hypercholesterolemia, unspecified; I10 Essential (primary) hypertension; Z86.711 Personal history of pulmonary embolism
CPT/HCPCS: 83036; 99214

== ENCOUNTER 2024-05-03 09:48 | Outpatient (REF) | payer MEDICARE, OTHER, SELFPAY ==
[2024-05-03 11:10] LABS: Anion Gap 16 (12-20); Blood Urea Nitrogen 26 mg/dL (9-16); Calcium 9.8 mg/dL (8.4-10.2); Carbon Dioxide 20 mmol/L (22-29); Chloride 106 mmol/L (96-108); Estimated Glomerular Filt Rate > 60; Glucose Random 132 mg/dL (60-115); Potassium 4.7 mmol/L (3.3-5.1); Sodium 137 mmol/L (135-145)
== END 2024-05-03 09:49 | disposition home or self-care (01) ==
LOC: HO.10HDL 09:48
PROVIDERS: Visit Provider Internal Medicine Hypertension Specialist
DX: I10 Essential (primary) hypertension (principal); I70.1 Atherosclerosis of renal artery
CPT/HCPCS: 36415; 80048

== ENCOUNTER 2024-05-07 11:54 | Outpatient (AMB) | payer MEDICARE, OTHER, SELFPAY ==
--- NOTE | 2024-05-07 11:55 | HO.NEPHOV_ITS ---
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 She is on 3 medications including hydralazine 25 mg b.i.d., Benicar 40 mg q.d. and HCTZ 25 mg. In spite of this blood pressure has been difficult to control. She had renal ultrasonogram which was suggestive of right-sided renal artery stenosis based on increased resistance. CT scan was ordered. However the posterior was not completed due to the inability to obtain IV access. After multiple attempts the venipuncture was abandoned and she was sent home. She has significant history of anxiety with high blood pressure. She has not checked her blood pressure at home. Apparently in the past she has had a 24 hour ABP M. I do not have access to the results. No headache nausea vomiting. No fever She has lost about 25 lb and her appetite has decreased. All the recent blood work was reviewed. This is a family history of diabetes mellitus. 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 01/31/24 Currently having allergic symptoms She has monitored her BP at home and readings are sub optimal 02/14/2024. Gillian called me last week with elevated blood pressure readings. She is tolerating Aldactazide. I increased hydralazine from 25 mg b.i.d. up to 50 mg t.i.d.. She has been watching her blood pressure at home and blood pressure is better controlled with a systolic blood pressure around 160-140 mm Hg. She has lost about 10 lb in the last 1 month 03/13/24 She is feeling better today. No more allergy symptoms. She completed dose of fexofenadine. After stopping the fexofenadine the nausea is improved. She has been monitoring blood pressure at home. Overall systolic blood pressure is around 140-140 mm Hg. Occasionally readings have been as low as 117 mm Hg systolic. 05/07/2024. Overall she is feeling better. Home blood pressures are acceptable She checks her twice and the 2nd readings usually at least 20 points LEs [facility] Medical History Medicare annual wellness visit, initial Facial basal cell cancer Peripheral vascular disease Hypercholesterolemia Diabetic nephropathy Gout History of pulmonary embolism DVT (deep venous thrombosis) Osteoarthritis Hypertension Type 2 diabetes mellitus with hyperglycemia Surgical History History of arthroscopy of right knee Family History Father Diabetes CVD (cardiovascular disease) Stroke Mother Hypertension Social History Housing: House Alcohol intake: current Alcohol intake frequency: 0-2 drinks per day Alcohol type: wine Patient Tobacco Use Status: Never used Tobacco e-Cigarette/Vaping Use: Never Used Second Hand Smoke Exposure: No service: No Current occupational status: retired Cognitive needs: No Hearing needs: No Vision needs: Yes Physical Exam Vital Signs: Last Vital Signs Pulse 88 05/07/24 11:56 BP 160/80 H 05/07/24 11:56 Pulse Ox 99 05/07/24 11:56 Oxygen Delivery Method Room Air 05/07/24 11:56 BMI result Body Mass Index 26.6 Neck Neck: Yes supple Resp Auscultation: clear to auscultation bilaterally Cardio Palpation: no palpable S3 Heart sounds: no rubs GI Palpation (GI): Soft to palpation Auscultation: normal bowel sounds Neuro Motor exam (neuro): no asterixis Results Reviewed Nephrology Results: Hgb 12.1 g/dl (12.0-16.0) 12/29/23 WBC 6.7 X10*3/uL (4.8-10.8) 12/29/23 Plt Count 252 X10*3/uL (160-400) 12/29/23 Sodium 137 mmol/L (135-145) 05/03/24 Potassium 4.7 mmol/L (3.3-5.1) 05/03/24 Chloride 106 mmol/L (96-108) 05/03/24 Carbon Dioxide 20 mmol/L (22-29) L 05/03/24 BUN 26 mg/dL (9-16) H 05/03/24 Creatinine 0.79 mg/dL (0.5-1.4) 05/03/24 Calcium 9.8 mg/dL (8.4-10.2) 05/03/24 Urine Creatinine 52.90 mg/dL 02/13/24 Assessment & Plan Assessment & Plan (1) Right renal artery stenosis: Code(s): I70.1 - Atherosclerosis of renal artery Category: Medical (2) Hypertension: Code(s): I10 - Essential (primary) hypertension Category: Medical Qualifiers: Hypertension type: essential hypertension Qualified Code(s): I10 - Essential (primary) hypertension Plan . 78 yr old woman with resistant hypertension. Doppler of renal arteries was suggestive of possible right renal artery stenosis. PA and PRA ratios were normal. Not suggestive of hyperaldosteronism or renal artery stenosis. Superimposed white coat effect superimposed on underlying HTN is still a possibility ;Contributing factor would be anxiety. Repeat PA/PRA and metanephrine levels are pending Keep Aldactazide 25-25 1 a day Hydralazine 50 mg t.i.d. for now. If BP is difficult to control [facility] meds, we will proceed with further workup including a CT angiogram or an MRA of renal arteries. We discussed CT angiogram and she wants to wait on this. Due to anxiety and claustrophobia we will hold off on MRA at this time. Needs to stay on low-sodium diet. Encouraged her to continue monitoring of blood pressure at home. I will be happy to maintain systolic blood pressure around 140 -150 mm Hg for now. Would certainly avoid blood pressures in the range of 110 since he has not able to tolerate this at this time. I have asked her to call me with a systolic blood pressure stays above 160 mm Hg. . Coding Level of Care Code Est Pt Level 3 (62925) Diagnoses Right renal artery stenosis I70.1 Essential hypertension I10 Hypertension type: essential hypertension
[2024-05-07 11:56] VITALS: BP 160/80; PULSE 88; O2SAT 99; BMI 26.6
== END 2024-05-07 12:17 | disposition home or self-care (01) ==
PROVIDERS: PCP Internal Medicine; Visit Provider Internal Medicine Hypertension Specialist
DX: I70.1 Atherosclerosis of renal artery (principal); I10 Essential (primary) hypertension
CPT/HCPCS: 99213

== ENCOUNTER → 2024-05-07 11:54 | Outpatient (BNVA) | payer MEDICARE, OTHER, SELFPAY | PROVIDERS: PCP Internal Medicine; Visit Provider Internal Medicine Hypertension Specialist | DX: I70.1 Atherosclerosis of renal artery (principal); I10 Essential (primary) hypertension | CPT/HCPCS: 99212 ==

== ENCOUNTER 2024-08-13 10:29 | Outpatient (AMB) | payer MEDICARE, OTHER, SELFPAY ==
[2024-08-13 10:28] VITALS: BP 130/70; PULSE 117; O2SAT 99; BMI 25.7
--- NOTE | 2024-08-13 10:28 | HO.NEPHOV ---
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 Accompanied by: Self / Same As Patient Allergies rosuvastatin Allergy (Unknown, Verified 08/13/24 10:31) Unknown tramadol Allergy (Unknown, Verified 08/13/24 10:31) joint pain Medication List - Last Reconciled 08/13/24 by Jas May MD acetaminophen (Tylenol Extra Strength) 1,000 mg PO Q6H PRN amoxicillin 500 mg PO TID atorvastatin 80 mg PO DAILY blood sugar diagnostic As directed check the blood sugar once a day ModtiTOUCH ULTRA TEST STRIPS cholecalciferol (vitamin D3) 50 mcg PO DAILY colesevelam (WelChol) 1,875 mg (3 x 625 mg) PO BID 90 days [email or web address],knee,reg,xlrg As directed 20-30 mm hg folic acid 1 mg PO DAILY hydralazine 50 mg PO TID lancets ([employer]) check the BS once a day lancets (FreeStyle Lancets) As directed check the BS QD metformin 500 mg PO DAILY olmesartan 10 mg (1/2 x 20 mg) PO DAILY rivaroxaban (Xarelto) 20 mg PO DAILY spironolacton-hydrochlorothiaz 25-25 mg 1 tab PO DAILY HPI Comments Details: Gillian is a pleasant 78 yr old woman with a history of longstanding hypertension. She is on 3 medications including hydralazine 25 mg b.i.d., Benicar 40 mg q.d. and HCTZ 25 mg. In spite of this blood pressure has been difficult to control. She had renal ultrasonogram which was suggestive of right-sided renal artery stenosis based on increased resistance. CT scan was ordered. However the posterior was not completed due to the inability to obtain IV access. After multiple attempts the venipuncture was abandoned and she was sent home. She has significant history of anxiety with high blood pressure. She has not checked her blood pressure at home. Apparently in the past she has had a 24 hour ABP M. I do not have access to the results. No headache nausea vomiting. No fever She has lost about 25 lb and her appetite has decreased. All the recent blood work was reviewed. This is a family history of diabetes mellitus. 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 01/31/24 Currently having allergic symptoms She has monitored her BP at home and readings are sub optimal 02/14/2024. Gillian called me last week with elevated blood pressure readings. She is tolerating Aldactazide. I increased hydralazine from 25 mg b.i.d. up to 50 mg t.i.d.. She has been watching her blood pressure at home and blood pressure is better controlled with a systolic blood pressure around 160-140 mm Hg. She has lost about 10 lb in the last 1 month 03/13/24 She is feeling better today. No more allergy symptoms. She completed dose of fexofenadine. After stopping the fexofenadine the nausea is improved. She has been monitoring blood pressure at home. Overall systolic blood pressure is around 140-140 mm Hg. Occasionally readings have been as low as 117 mm Hg systolic. 05/07/2024. Overall she is feeling better. Home blood pressures are acceptable She checks her twice and the 2nd readings usually at least 20 points LEs [facility] Medical History Medicare annual wellness visit, initial Facial basal cell cancer Peripheral vascular disease Hypercholesterolemia Diabetic nephropathy Gout History of pulmonary embolism DVT (deep venous thrombosis) Osteoarthritis Hypertension Type 2 diabetes mellitus with hyperglycemia Surgical History History of arthroscopy of right knee Family History Father Diabetes CVD (cardiovascular disease) Stroke Mother Hypertension Social History Housing: House Alcohol intake: current Alcohol intake frequency: 0-2 drinks per day Alcohol type: wine Patient Tobacco Use Status: Never used Tobacco e-Cigarette/Vaping Use: Never Used Second Hand Smoke Exposure: No service: No Current occupational status: retired Cognitive needs: No Hearing needs: No Vision needs: Yes Physical Exam Vital Signs: Last Vital Signs Pulse 117 H 08/13/24 10:28 Pulse Ox 99 08/13/24 10:28 Oxygen Delivery Method Room Air 08/13/24 10:28 BMI result Body Mass Index 25.7 Const General: comfortable; No acute distress Orientation/consciousness: patient oriented x3 Eyes General: appearance normal, both eyes and all related structures Visual Gonzalez: normal visual gonzalez by confrontation Neck Neck: Yes supple and Yes no JVD Resp Effort & Inspection: normal respiratory effort and respiratory effort not decreased Auscultation: rhonchi Cardio Palpation: no palpable S3 and no palpable S4 Heart sounds: no rubs GI Inspection: Yes normal to inspection Palpation (GI): Soft to palpation Percussion: Yes normal to percussion Auscultation: normal bowel sounds General: Yes no CVA tenderness Back/Spine/Pelvis Back: no CVA tenderness Skin General skin exam: no petechiae and no purpura Neuro General: patient oriented x3 and no focal motor deficits Extrem General: No clubbing and No edema Results Reviewed Nephrology Results: Sodium 137 mmol/L (135-145) 05/03/24 Potassium 4.7 mmol/L (3.3-5.1) 05/03/24 Chloride 106 mmol/L (96-108) 05/03/24 Carbon Dioxide 20 mmol/L (22-29) L 05/03/24 BUN 26 mg/dL (9-16) H 05/03/24 Creatinine 0.79 mg/dL (0.5-1.4) 05/03/24 Calcium 9.8 mg/dL (8.4-10.2) 05/03/24 Urine Creatinine 52.90 mg/dL 02/13/24 Assessment & Plan Assessment & Plan (1) Right renal artery stenosis: Code(s): I70.1 - Atherosclerosis of renal artery Category: Medical (2) Hypertension: Code(s): I10 - Essential (primary) hypertension Category: Medical Qualifiers: Hypertension type: essential hypertension Qualified Code(s): I10 - Essential (primary) hypertension Plan . 78 yr old woman with resistant hypertension. Doppler of renal arteries was suggestive of possible right renal artery stenosis. PA and PRA ratios were normal. Not suggestive of hyperaldosteronism or renal artery stenosis. Superimposed white coat effect superimposed on underlying HTN is still a possibility ;Contributing factor would be anxiety. Repeat PA/PRA and metanephrine levels are pending Keep Aldactazide 25-25 1 a day Hydralazine 50 mg t.i.d. for now. If BP is difficult to control wt meds, we will proceed with further workup including a CT angiogram or an MRA of renal arteries. We discussed CT angiogram and she wants to wait on this. Due to anxiety and claustrophobia we will hold off on MRA at this time. Needs to stay on low-sodium diet. Encouraged her to continue monitoring of blood pressure at home. I will be happy to maintain systolic blood pressure around 140 -150 mm Hg for now. Would certainly avoid blood pressures in the range of 110 since he has not able to tolerate this at this time. I have asked her to call me with a systolic blood pressure stays above 160 mm Hg. 08/13/24 BP well controlled,No changes today. Stay on low salt diet . Orders: Orders Basic Metabolic Panel 3 Months I10 - Essential (primary) hypertension Complete Blood Count no Diff 3 Months I10 - Essential (primary) hypertension Coding Level of Care Code Est Pt Level 4 (07604) Diagnoses Right renal artery stenosis I70.1 Essential hypertension I10 Hypertension type: essential hypertension
[2024-08-13 10:53] VITALS: PULSE 88
== END 2024-08-13 10:57 | disposition home or self-care (01) ==
PROVIDERS: PCP Internal Medicine; Visit Provider Internal Medicine Hypertension Specialist
DX: I70.1 Atherosclerosis of renal artery (principal); I10 Essential (primary) hypertension
CPT/HCPCS: 99214

== ENCOUNTER → 2024-08-13 10:29 | Outpatient (BNVA) | payer MEDICARE, OTHER, SELFPAY | PROVIDERS: PCP Internal Medicine; Visit Provider Internal Medicine Hypertension Specialist | DX: I10 Essential (primary) hypertension (principal); I70.1 Atherosclerosis of renal artery | CPT/HCPCS: 99212 ==

== ENCOUNTER 2024-09-14 09:21 | Outpatient (REF) | payer MEDICARE, OTHER, SELFPAY ==
[2024-09-14 10:56] LABS: MANUAL DIFF FLAG NO
[2024-09-14 10:57] LABS: Basophils Percent Auto 0.7 % (0-2); Eosinophils Absolute Auto 0.1 X10*3/uL (0.0-0.4); Eosinophils Percent Auto 1.1 % (0-4); Hematocrit 34.8 % (37.0-47.0); Hemoglobin 11.6 g/dl (12.0-16.0); Imm Gran Abs Auto 0.02 X10*3/uL (0.00-0.03); Imm Gran Pct Auto 0.4 % (0.0-0.4); Lymphocytes Absolute Auto 1.6 X10*3/uL (1.2-4.9); Lymphocytes Percent Auto 29.1 % (20-40); Mean Corpuscular HGB Conc 33.3 g/dl (31.0-35.0); Mean Corpuscular Hemoglobin 33.1 pg (27.0-33.0); Mean Corpuscular Volume 99.4 fL (80.0-98.0); Mean Platelet Volume 9.9 fL (9.4-12.3); Monocytes Absolute Auto 0.5 X10*3/uL (0.1-1.2); Monocytes Percent Auto 8.5 % (2-11); Neutrophils Absolute Auto 3.3 x10*3/uL (2.0-8.3); Neutrophils Percent Auto 60.2 % (45-73); Platelet Count 242 X10*3/uL (160-400); Red Cell Distribution Width 13.3 % (11.0-16.0); White Blood Count 5.4 X10*3/uL (4.8-10.8)
[2024-09-14 11:15] LABS: Alanine Aminotransferase 12 U/L (0-31); Alkaline Phosphatase 44 U/L (39-117); Anion Gap 14 (12-20); Aspartate Amino Transferase 21 U/L (5-31); Bilirubin Total 0.6 mg/dL (0.0-1.0); Blood Urea Nitrogen 20 mg/dL (9-16); Calcium 9.6 mg/dL (8.4-10.2); Carbon Dioxide 21 mmol/L (22-29); Chloride 109 mmol/L (96-108); Cholesterol 170 mg/dL (<200); Estimated Glomerular Filt Rate > 60; Glucose Random 135 mg/dL (60-115); HDL Cholesterol 80 mg/dL (>40); LDL Cholesterol Calculated 74 mg/dL (<100); Potassium 4.2 mmol/L (3.3-5.1); Sodium 140 mmol/L (135-145); Triglycerides 82 mg/dL (<150)
[2024-09-14 11:17] LABS: Estimated Average Glucose 111 mg/dL; Hemoglobin A1C 106.7983 umol/L; Hemoglobin A1c % 5.5 % (<6.0)
[2024-09-14 11:37] LABS: Thyroid Stimulating Hormone 0.62 uIU/mL (0.32-4.0)
== END 2024-09-14 09:22 | disposition home or self-care (01) ==
LOC: HO.HMGCLDS 09:21
PROVIDERS: PCP Internal Medicine; Visit Provider Internal Medicine
DX: E11.65 Type 2 diabetes mellitus with hyperglycemia (principal); E78.00 Pure hypercholesterolemia, unspecified
CPT/HCPCS: 36415; 80053; 80061; 83036; 84439; 84443; 85025

== ENCOUNTER 2024-09-17 09:50 | Outpatient (AMB) | payer MEDICARE, OTHER, SELFPAY ==
[2024-09-17 09:59] VITALS: BP 166/78; PULSE 73; O2SAT 97
--- NOTE | 2024-09-17 09:59 | A.OFFPC_ITS ---
Vital Signs 09/17/24 09:59 Height 5 ft 9 in BMI Reason not done Patient refused/unable BP 166/78 H Blood Pressure Location Lt brachial Position Sitting Pulse 73 Pulse Source Pulse Oximeter Pulse Oximetry (%) 97 Oxygen Delivery Method Room Air Intake Visit Reasons: 3 Month F/U Intake Note: Patient here for a 3 month follow up Environmental Change Analyst Required: No Accompanied by: Self / Same As Patient Allergies rosuvastatin Allergy (Unknown, Verified 09/17/24 10:11) Unknown tramadol Allergy (Unknown, Verified 09/17/24 10:11) joint pain Tobacco use date assessed: 12/30/23 Fall risk assessment: No Falls in past year Last assessed Fall Risk: 09/17/24 Dental Screening Dental Screen Date: 09/17/24 Did you have a dental visit in the last 12 months?: Yes Did you have a dental problem in the last 6 months where you did not have access to dental care?: No Was dental information given to patient?: Patient has dentist HPI 3 Month F/U HPI Details 79-year-old female with controlled diabe riky mellitus hypertension hypercholesterolemia and history of pulmonary embolism coming in for follow-up. Last seen in April 25 2024. Patient is has mentioned patient has depression. Patient's mammogram has been declined bone density declined and colonoscopy last done in 2019. Review of the notes has been follow-up with Nephrology for the hypertension patient had an anal ultrasound suggestive of right renal artery stenosis CT scan ordered but not able to be done due to inability to get IV access. Home blood pressure acceptable diagnosis of L renal artery stenosis atherosclerosis of the renal artery hypertension no suggestion of hyperaldosteronism or renal artery stenosis on the blood work. Superimposed white coat effect continuing with Aldactazide 25/25 once a day hydralazine 50 mg t.i.d. low-sodium diet okay to maintain systolic blood pressure of 1 40-150 for now. PAtient declined any additional help for emotions patient is aware of the situational depression that she is feeling but declined any referral for counseling nor any medication to take. Patient is getting better at 1st has had some loss of weight but now appetite is back. [facility] Medical History Medicare annual wellness visit, initial Facial basal cell cancer Peripheral vascular disease Hypercholesterolemia Diabetic nephropathy Gout History of pulmonary embolism DVT (deep venous thrombosis) Osteoarthritis Hypertension Type 2 diabetes mellitus with hyperglycemia Surgical History History of arthroscopy of right knee Family History Father Diabetes CVD (cardiovascular disease) Stroke Mother Hypertension Social History Housing: House Alcohol intake: current Alcohol intake frequency: 0-2 drinks per day Alcohol type: wine Patient Tobacco Use Status: Never used Tobacco e-Cigarette/Vaping Use: Never Used Second Hand Smoke Exposure: No service: No Current occupational status: retired Cognitive needs: No Hearing needs: No Vision needs: Yes Questionnaire Thrive Questionnaire Date Thrive assessed: 12/30/23 JOSEF-7 AMB Questionnaire JOSEF-7 Date JOSEF - 7 assessed: 12/30/23 Source: Developed by Drs. Yahir Jones, Shi Godfrey, Vasile Antonio and colleagues, with an educational jose francisco from [employer]. Physical exam (Primary Care) Vital Signs: Last Vital Signs Pulse 73 09/17/24 09:59 BP 166/78 H 09/17/24 09:59 Pulse Ox 97 09/17/24 09:59 Oxygen Delivery Method Room Air 09/17/24 09:59 Tobacco/Smoking Status: Tobacco use Status Tobacco use date assessed 12/30/23 09/17/24 10:03 Patient Tobacco Use Status Never used Tobacco 09/17/24 10:03 e-Cigarette/Vaping Use Never Used 09/17/24 10:03 Thrive Assessment: Date of Thrive Assessment Date Thrive assessed 12/30/23 09/17/24 10:03 Const General: alert; No acute distress Eyes Conjunctivae: conjunctivae normal Resp Auscultation: clear to auscultation bilaterally Cardio Rate: regular rate Rhythm: regular rhythm GI Inspection: Yes normal to inspection Extrem General: Yes normal to inspection and No edema Office Procedures Flu Questionnaire Does the patient have a severe egg allergy?: No Immunizations Fluarix Triv [id number] (PF) 45 mcg (15 mcg x 3)/0.5 mL IM syringe Performing Provider: Erika De La O MD [facility] [place] [facility] Documented (not given) by: Lucas Tymyron Sean on 09/17/24 10:10 Reason Not Given: Patient Refused Coding Level of Care Code Est Pt Level 4 (32708) Diagnoses Right renal artery stenosis I70.1 Essential hypertension I10 Hypertension type: essential hypertension Type 2 diabetes mellitus with hyperglycemia, without long-term current use of insulin E11.65 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 Decrease salt intake and exercise patient is taking hydralazine 50 mg t.i.d. with olmesartan at 10 mg once a day and spironolactone hydrochlorothiazide 25/25 once a day. (3) Type 2 diabetes mellitus with hyperglycemia: Comment: Dr. Price October, Code(s): E11.65 - Type 2 diabetes mellitus with hyperglycemia Category: Medical Qualifiers: Diabetes mellitus mcfp insulin use: without buttermilk drier operator use Qualified Code(s): E11.65 - Type 2 diabetes mellitus with hyperglycemia Plan: Decrease the amount of carbohydrate intake, pasta, bread, rice and potatoes are all sugar and that is aside from all the sweet stuff, remember that fruits are good but they are Sweet also. On metformin 500 mg once a day and controlled (4) History of pulmonary embolism: Comment: September 2007 Code(s): Z86.711 - Personal history of pulmonary embolism Category: Medical Plan: Continuing with Xarelto anticoagulation. (5) Hypercholesterolemia: Code(s): E78.00 - Pure hypercholesterolemia, unspecified Category: Medical Plan: Avoid fried foods, chicken skin, eggs, butter margarine, pastries and meat. Be it pork or beef they have a lot of cholesterol LDL goal of less than 100 and triglyceride of less than 150 on atorvastatin 80 mg once a day Orders: Orders Influenza [id number] Immunization Today Z23 - Encounter for immunization
== END 2024-09-17 10:33 | disposition home or self-care (01) ==
PROVIDERS: PCP Internal Medicine; Visit Provider Internal Medicine
DX: I70.1 Atherosclerosis of renal artery (principal); I10 Essential (primary) hypertension; E11.65 Type 2 diabetes mellitus with hyperglycemia; Z86.711 Personal history of pulmonary embolism; E78.00 Pure hypercholesterolemia, unspecified; Z23 Encounter for immunization

== ENCOUNTER → 2024-09-17 09:50 | Outpatient (BNVA) | payer MEDICARE, OTHER, SELFPAY | PROVIDERS: PCP Internal Medicine; Visit Provider Internal Medicine | DX: I70.1 Atherosclerosis of renal artery (principal); I10 Essential (primary) hypertension; E11.65 Type 2 diabetes mellitus with hyperglycemia; E78.00 Pure hypercholesterolemia, unspecified; Z86.711 Personal history of pulmonary embolism | CPT/HCPCS: 90471; 99212 ==

== ENCOUNTER 2024-12-11 13:30 | Outpatient (REF) | payer MEDICARE, OTHER, SELFPAY ==
[2024-12-11 16:15] LABS: Hematocrit 37.9 % (37.0-47.0); Hemoglobin 12.5 g/dl (12.0-16.0); Mean Corpuscular Hemoglobin 32.2 pg (27.0-33.0); Mean Corpuscular Volume 97.7 fL (80.0-98.0); Platelet Count 315 X10*3/uL (160-400); Red Blood Count 3.88 X10*6/uL (4.20-5.50); White Blood Count 8.1 X10*3/uL (4.8-10.8)
[2024-12-11 16:25] LABS: Anion Gap 16 (12-20); Blood Urea Nitrogen 24 mg/dL (9-16); Calcium 9.8 mg/dL (8.4-10.2); Carbon Dioxide 21 mmol/L (22-29); Chloride 105 mmol/L (96-108); Estimated Glomerular Filt Rate > 60; Glucose Random 106 mg/dL (60-115); Potassium 4.7 mmol/L (3.3-5.1); Sodium 137 mmol/L (135-145)
--- OUTSIDE RECORDS SUMMARY | 2024-12-11 16:37 | XMS_ITS | Clinical Summary ---
Author Organization [facility], Address [address] [place] [address] Phone Care Team Providers Care Residential Worker Name Role Phone Erika De La O MD Primary Care Provider [phone] Allergies No known active allergies Medications atorvastatin (LIPITOR) 80 MG tablet Take 1 tablet by mouth 1 (one) time each day Active colesevelam (WELCHOL) 625 MG tablet Take 3 tablets by mouth 2 (two) times a day Active folic acid (FOLVITE) 1 MG tablet Take 1 tablet by mouth 1 (one) time each day Active hydroCHLOROthia zide (HYDRODIURIL) 25 MG tablet Take 1 tablet by mouth 1 (one) time each day Active rivaroxaban (XARELTO) 20 MG tablet Take 1 tablet by mouth 1 (one) time each day Active traMADol (ULTRAM) 50 MG tablet Take 1 tablet by mouth 3 (three) times a day Active amLODIPine-olme sartan (MAGI) 10-40 MG per tablet TAKE 1 TABLET BY MOUTH EVERY DAY 90 tablet 2 10/03/2019 Active hydrALAZINE (APRESOLINE) 25 MG tablet Take 1 tablet (25 mg total) by mouth 3 (three) times a day 90 tablet 6 10/01/2019 Active metFORMIN (GLUCOPHAGE) 500 MG tablet 07/12/2019 Activ e Lancets (FREESTYLE) lancets 2019 Active amLODIPine-olme sartan (MAGI) 10-40 MG per tablet TAKE 1 TABLET BY MOUTH EVERY DAY 90 tablet 2 03/26/2020 Active Active Problems Problem Noted Date Diagnosed Date Chronic kidney disease 09/28/2019 Essential hypertension 09/28/2019 Hypercholesterolemia 09/28/2019 Type 2 diabetes mellitus 09/28/2019 Family History Medical History Relation Comments Diabetes Father 2 Heart disease Father 2 Stroke Father 2 Hypertension Mother 2 Relation Status Comments Father 1 Father 2 Mother 1 Mother 2 Social History Tobacco Use Types Packs/Day Years Used Date Smoking Tobacco: Never Alcohol Use Standard Drinks/Week Comments No 0 (1 standard drink = 0.6 oz pur e alcohol) Comments Unknown Sex and Gender Information Value Date Recorded Sex Assigned at Not on file Legal Sex Female 4:30 PM EST Gender Identity Not on file Sexual Orientation Not on file Last Filed Vital Signs Vital Sign Reading Time Taken Comments Blood Pressure 128/70 10/01/2019 2:59 PM EST Pulse - - Temperature - - Respiratory Rate - - Oxygen Saturation - - Inhaled Oxygen Concentration - - Weight 108 kg (239 lb) 10/01/2019 2:59 PM EST Height 172.7 cm (5' 8 ) 07/09/2019 12:00 PM EDT Body Mass Index 36.34 07/09/2019 12:00 PM EDT Plan of Treatment Health Maintenance Due Date Last Done Comments Pneumococcal Vaccine: 65+ Ye ars (1 of 2 - PCV) 1951 Diabetes: Hemoglobin A1C 09/28/2019 Diabetes: Ophthalmology Exam 09/28/2019 Diabetes: Pedal Pulse Checked 09/28/2019 Diabetes: Sensory Foot Exam 09/28/2019 Diabetes: Visual Foot Exam 09/28/2019 Influenza Vaccine (#1) 2024 Hepatitis B Vaccine Aged Out No longe r eligible based on patient's age to complete this topic Insurance [facility] Care Teams Residential Worker Relationship Specialty Start Date End Date Erika De La O MD [facility] [address] [place] PCP - General 08/21/19
== END 2024-12-11 13:31 | disposition home or self-care (01) ==
LOC: HO.HMGCLDS 13:30
PROVIDERS: PCP Internal Medicine; Visit Provider Internal Medicine Hypertension Specialist
DX: I10 Essential (primary) hypertension (principal)
CPT/HCPCS: 36415; 80048; 85027

== ENCOUNTER 2024-12-13 10:43 | Outpatient (AMB) | payer MEDICARE, OTHER, SELFPAY ==
[2024-12-13 10:53] VITALS: BP 190/80; PULSE 106; O2SAT 99; BMI 24.8
--- NOTE | 2024-12-13 10:53 | HO.NEPHOV ---
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 Accompanied by: Self / Same As Patient Allergies rosuvastatin Allergy (Unknown, Verified 12/13/24 10:56) Unknown tramadol Allergy (Unknown, Verified 12/13/24 10:56) joint pain Medication List - Last Reconciled 12/13/24 by Jas May MD acetaminophen (Tylenol Extra Strength) 1,000 mg PO Q6H PRN atorvastatin 80 mg PO DAILY blood sugar diagnostic As directed check the blood sugar once a day [employer] Technologies[employer]CH ULTRA TEST STRIPS cholecalciferol (vitamin D3) 50 mcg PO DAILY colesevelam (WelChol) 1,875 mg (3 x 625 mg) PO BID 90 days [email or web address].[email or web address],knee,reg,xlrg As directed 20-30 mm hg folic acid 1 mg PO DAILY hydralazine 50 mg PO TID lancets (ZS [employer]Touch SureSoft Lancing Devices) check the BS once a day lancets (FreeStyle Lancets) As directed check the BS QD metformin 500 mg PO DAILY olmesartan 10 mg (1/2 x 20 mg) PO DAILY rivaroxaban (Xarelto) 20 mg PO DAILY spironolacton-hydrochlorothiaz 25-25 mg 1 tab PO DAILY HPI Comments Details: Gillian is a pleasant 78 yr old woman with a history of longstanding hypertension. She is on 3 medications including hydralazine 25 mg b.i.d., Benicar 40 mg q.d. and HCTZ 25 mg. In spite of this blood pressure has been difficult to control. She had renal ultrasonogram which was suggestive of right-sided renal artery stenosis based on increased resistance. CT scan was ordered. However the posterior was not completed due to the inability to obtain IV access. After multiple attempts the venipuncture was abandoned and she was sent home. She has significant history of anxiety with high blood pressure. She has not checked her blood pressure at home. Apparently in the past she has had a 24 hour ABP M. I do not have access to the results. No headache nausea vomiting. No fever She has lost about 25 lb and her appetite has decreased. All the recent blood work was reviewed. This is a family history of diabetes mellitus. 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 01/31/24 Currently having allergic symptoms She has monitored her BP at home and readings are sub optimal 02/14/2024. Gillian called me last week with elevated blood pressure readings. She is tolerating Aldactazide. I increased hydralazine from 25 mg b.i.d. up to 50 mg t.i.d.. She has been watching her blood pressure at home and blood pressure is better controlled with a systolic blood pressure around 160-140 mm Hg. She has lost about 10 lb in the last 1 month 03/13/24 She is feeling better today. No more allergy symptoms. She completed dose of fexofenadine. After stopping the fexofenadine the nausea is improved. She has been monitoring blood pressure at home. Overall systolic blood pressure is around 140-140 mm Hg. Occasionally readings have been as low as 117 mm Hg systolic. 05/07/2024. Overall she is feeling better. Home blood pressures are acceptable She checks her twice and the 2nd readings usually at least 20 points LEs 12/13/2024. Overall doing well. No new issues. [facility] Medical History Medicare annual wellness visit, initial Facial basal cell cancer Peripheral vascular disease Hypercholesterolemia Diabetic nephropathy Gout History of pulmonary embolism DVT (deep venous thrombosis) Osteoarthritis Hypertension Type 2 diabetes mellitus with hyperglycemia Surgical History History of arthroscopy of right knee Family History Father Diabetes CVD (cardiovascular disease) Stroke Mother Hypertension Social History Housing: House Alcohol intake: current Alcohol intake frequency: 0-2 drinks per day Alcohol type: wine Patient Tobacco Use Status: Never used Tobacco e-Cigarette/Vaping Use: Never Used Second Hand Smoke Exposure: No service: No Current occupational status: retired Cognitive needs: No Hearing needs: No Vision needs: Yes Physical Exam Vital Signs: Last Vital Signs Pulse 106 H 12/13/24 10:53 BP 160/80 H 12/13/24 11:06 Pulse Ox 99 12/13/24 10:53 Oxygen Delivery Method Room Air 12/13/24 10:53 BMI result Body Mass Index 24.8 Const General: comfortable; No acute distress Orientation/consciousness: patient oriented x3 Eyes General: appearance normal, both eyes and all related structures Visual Gonzalez: normal visual gonzalez by confrontation Neck Neck: Yes supple and Yes no JVD Resp Effort & Inspection: normal respiratory effort and respiratory effort not decreased Auscultation: rhonchi Cardio Palpation: no palpable S3 and no palpable S4 Heart sounds: no rubs GI Inspection: Yes normal to inspection Palpation (GI): Soft to palpation Percussion: Yes normal to percussion Auscultation: normal bowel sounds General: Yes no CVA tenderness Back/Spine/Pelvis Back: no CVA tenderness Skin General skin exam: no petechiae and no purpura Neuro General: patient oriented x3 and no focal motor deficits Extrem General: No clubbing and No edema Results Reviewed Nephrology Results: Hgb 12.5 g/dl (12.0-16.0) 12/11/24 WBC 8.1 X10*3/uL (4.8-10.8) 12/11/24 Plt Count 315 X10*3/uL (160-400) 12/11/24 Sodium 137 mmol/L (135-145) 12/11/24 Potassium 4.7 mmol/L (3.3-5.1) 12/11/24 Chloride 105 mmol/L (96-108) 12/11/24 Carbon Dioxide 21 mmol/L (22-29) L 12/11/24 BUN 24 mg/dL (9-16) H 12/11/24 Creatinine 0.75 mg/dL (0.5-1.4) 12/11/24 Calcium 9.8 mg/dL (8.4-10.2) 12/11/24 Assessment & Plan Assessment & Plan (1) Right renal artery stenosis: Code(s): I70.1 - Atherosclerosis of renal artery Category: Medical (2) Hypertension: Code(s): I10 - Essential (primary) hypertension Category: Medical Qualifiers: Hypertension type: essential hypertension Qualified Code(s): I10 - Essential (primary) hypertension (3) Hypercholesterolemia: Code(s): E78.00 - Pure hypercholesterolemia, unspecified Category: Medical Plan . 78 yr old woman with resistant hypertension. Doppler of renal arteries was suggestive of possible right renal artery stenosis. PA and PRA ratios were normal. Not suggestive of hyperaldosteronism or renal artery stenosis. Superimposed white coat effect superimposed on underlying HTN is still a possibility ;Contributing factor would be anxiety. Repeat PA/PRA and metanephrine levels are pending Keep Aldactazide 25-25 1 a day Hydralazine 50 mg t.i.d. for now. If BP is difficult to control wt meds, we will proceed with further workup including a CT angiogram or an MRA of renal arteries. We discussed CT angiogram and she wants to wait on this. Due to anxiety and claustrophobia we will hold off on MRA at this time. Needs to stay on low-sodium diet. Encouraged her to continue monitoring of blood pressure at home. I will be happy to maintain systolic blood pressure around 140 -150 mm Hg for now. Would certainly avoid blood pressures in the range of 110 since he has not able to tolerate this at this time. I have asked her to call me with a systolic blood pressure stays above 160 mm Hg. 08/13/24 BP well controlled,No changes today. Stay on low salt diet 12/13/2024. Initial blood pressure was elevated. Repeat blood pressure was better. Gillian has a history of resistant hypertension with superimposed white coat effect. Encouraged her to keep monitoring blood pressure at home. No changes were made. . Orders: Orders Basic Metabolic Panel 6 Months E78.00 - Pure hypercholesterolemia, unspecified, I10 - Essential (primary) hypertension, I70.1 - Atherosclerosis of renal artery Lipid Panel 6 Months E78.00 - Pure hypercholesterolemia, unspecified, I10 - Essential (primary) hypertension, I70.1 - Atherosclerosis of renal artery Coding Level of Care Code Est Pt Level 4 (14600) Diagnoses Right renal artery stenosis I70.1 Essential hypertension I10 Hypertension type: essential hypertension Hypercholesterolemia E78.00
[2024-12-13 11:06] VITALS: BP 160/80
--- OUTSIDE RECORDS SUMMARY | 2024-12-13 12:44 | XMS_ITS | Clinical Summary ---
Author Organization [facility], Address [address] [place] [address] Phone Care Team Providers Care Bingo Checker Name Role Phone Erika De La O MD Primary Care Provider [phone] Allergies No known active allergies Medications atorvastatin [...] patient's age to complete this topic Insurance [facility] MEDICARE Care Teams Bingo Checker Relationship Specialty Start Date End Date Erika De La O MD [facility] [address] ROSALVA ARTEAGA PCP - General 08/21/19
== END 2024-12-13 11:07 | disposition home or self-care (01) ==
PROVIDERS: PCP Internal Medicine; Visit Provider Internal Medicine Hypertension Specialist
DX: I70.1 Atherosclerosis of renal artery (principal); I10 Essential (primary) hypertension; E78.00 Pure hypercholesterolemia, unspecified
CPT/HCPCS: 99214

== ENCOUNTER → 2024-12-13 10:43 | Outpatient (BNVA) | payer MEDICARE, OTHER, SELFPAY | PROVIDERS: PCP Internal Medicine; Visit Provider Internal Medicine Hypertension Specialist | DX: I10 Essential (primary) hypertension (principal); I70.1 Atherosclerosis of renal artery; E78.00 Pure hypercholesterolemia, unspecified | CPT/HCPCS: 99212 ==

== ENCOUNTER 2024-12-31 10:44 | Outpatient (AMB) | payer MEDICARE, OTHER, SELFPAY ==
--- NOTE | 2024-12-31 10:57 | MHC.PC.OV ---
Vital Signs 12/31/24 10:59 Height 5 ft 9 in BMI Reason not done Patient refused/unable BP 140/80 H Blood Pressure Location Lt brachial Position Sitting Pulse 100 Pulse Source Pulse Oximeter Temp 97.5 F Temp Source Temporal Artery Scan Pulse Oximetry (%) 98 Oxygen Delivery Method Room Air Intake Visit Reasons: 3 month f/u Intake Note: Patient is here to follow up on DM, PVD, HTN, Hypercholesterolemia. Dining Server Required: No Elastic Attacher Coverstitch: Not Required per policy Accompanied by: Self / Same As Patient Allergies rosuvastatin Allergy (Unknown, Verified 12/31/24 10:58) Unknown tramadol Allergy (Unknown, Verified 12/31/24 10:58) joint pain Tobacco use date assessed: 12/31/24 Fall risk assessment: No Falls in past year Last assessed Fall Risk: 12/31/24 Dental Screening Dental Screen Date: 12/31/24 Did you have a dental visit in the last 12 months?: Yes Did you have a dental problem in the last 6 months where you did not have access to dental care?: No Was dental information given to patient?: Patient has dentist [facility] Medical History (Updated 09/17/24 @ 10:30 by Erika De La O MD) Medicare annual wellness visit, initial Facial basal cell cancer Peripheral vascular disease Hypercholesterolemia Diabetic nephropathy Gout History of pulmonary embolism DVT (deep venous thrombosis) Osteoarthritis Hypertension Type 2 diabetes mellitus with hyperglycemia Surgical History (Updated 12/31/24 @ 11:04 by HONORIO Wilson) History of root canal procedure History of tooth extraction History of arthroscopy of right knee Family History Father Diabetes CVD (cardiovascular disease) Stroke Mother Hypertension Social History Housing: House Alcohol intake: current Alcohol intake frequency: 0-2 drinks per day Alcohol type: wine Patient Tobacco Use Status: Never used Tobacco e-Cigarette/Vaping Use: Never Used Second Hand Smoke Exposure: No service: No Current occupational status: retired Cognitive needs: Yes (Cane) Hearing needs: No Vision needs: Yes Questionnaire PHQ-9 Over the last 2 weeks, how often have you been bothered by any of the following problems? 1. Little interest or pleasure in doing things: not at all 2. Feeling down, depressed, or hopeless: not at all 3. Trouble falling or staying asleep, or sleeping too much: not at all 4. Feeling tired or having little energy: not at all 5. Poor appetite or overeating: not at all 6. Feeling bad about yourself - or that you are a failure or have let yourself or your family down: not at all 7. Trouble concentrating on things, such as reading the newspaper or watching television: not at all 8. Moving or speaking so slowly that other people could have noticed. Or the opposite - being so fidgety or restless that you have been moving around a lot more than usual: not at all 9. Thoughts that you would be better off or of hurting yourself in some way: not at all Total score: 0 Depression Screening Interpretation: Negative Depression Screening Done: Yes Source: Developed by Drs. Yahir Jones, Shi Godfrey, Vasile Antonio and colleagues, with an educational jose francisco from [employer]. Thrive Questionnaire Date Thrive assessed: 12/31/24 I am a: Patient What is your living situation today?: I have a steady place to live Within the past 12 months, did the food you bought not last and you didn't have the money to get more?: Never true Within the past 12 months, did you worry whether your food would run out before you got money to buy more?: Never true Do you have trouble paying for medicines?: No Do you have trouble getting transportation to medical appointments?: No Do you have trouble paying your heating and electricity bill?: No Do you have trouble taking care of your child, family member or friend?: No Do you have trouble with day-to-day activities such as bathing, preparing meals, shopping, managing finances, etc.?: No Are you currently unemployed and looking for a job?: No Are you interested in more education?: No Please select the resources that you would like help with: None Currently or been in a relationship where the following occur: No concerns reported THRIVE Score: 0 AUDIT C Alcohol Use Questionnaire (AUDIT-C) 1. How often do you have a drink containing alcohol?: Never Total Score: 0 JOSEF-7 AMB Questionnaire JOSEF-7 Date JOSEF - 7 assessed: 12/31/24 Feeling nervous, anxious, or on edge: 0 = Not at all Not being able to stop or control worryin = Not at all Worrying too much about different things: 0 = Not at all Trouble relaxin = Not at all Being so restless that it is hard to sit still: 0 = Not at all Becoming easily annoyed or irritable: 0 = Not at all Feeling afraid as if something awful might happen: 0 = Not at all Total JOSEF-7 score (0-4 normal; 5-9 mild; 10-14 moderate; 15-21 severe): 0 Source: Developed by Drs. Yahir Jones, Shi Godfrey, Vasile Antonio and colleagues, with an educational jose francisco from [employer]. Physical exam (Primary Care) Vital Signs: Last Vital Signs Temp 97.5 F 12/31/24 10:59 Pulse 100 12/31/24 10:59 BP 140/80 H 12/31/24 10:59 Pulse Ox 98 12/31/24 10:59 Oxygen Delivery Method Room Air 12/31/24 10:59 Tobacco/Smoking Status: Tobacco use Status Tobacco use date assessed 12/31/24 12/31/24 11:08 Patient Tobacco Use Status Never used Tobacco 12/31/24 11:08 e-Cigarette/Vaping Use Never Used 12/31/24 11:08 PHQ-9: PHQ-9 Score PHQ-9: Total score 0 12/31/24 11:34 Depression Screening Interpretation: Negative Thrive Assessment: Date of Thrive Assessment Date Thrive assessed 12/31/24 12/31/24 11:08 Currently or been in a relationship where the following occur: No concerns reported Const General: alert; No acute distress Eyes Conjunctivae: conjunctivae normal Resp Auscultation: clear to auscultation bilaterally Cardio Rate: regular rate Rhythm: regular rhythm GI Inspection: Yes normal to inspection Extrem General: Yes normal to inspection and No edema Results AMB Hemoglobin A1c AMB Hemoglobin A1c 5.5 % Last Edit by HONORIO Wilson on 12/31/24 11:12 Results Reviewed Results Reviewed: Laboratory Last Values Hgb A1c (Clinic) 5.5 % (4.0-6.0) 12/31/24 10:57 Coding Level of Care Code Est Pt Level 4 (16529) Complex EM visit Add On G2211 Diagnoses Type 2 diabetes mellitus with hyperglycemia, without long-term current use of insulin E11.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 Hemoglobin A1c goal of less than 7.0 patient on Welchol metformin (2) Hypertension: Code(s): I10 - Essential (primary) hypertension Category: Medical Qualifiers: Hypertension type: essential hypertension Qualified Code(s): I10 - Essential (primary) hypertension Plan: Continue with blood pressure medication. Decrease salt intake and exercise patient has seen Nephrology continue to monitor has also white coat syndrome. On hydralazine 50 mg t.i.d. with Aldactazide 25/25 once a day olmesartan 10 mg once a day (3) Hypercholesterolemia: Code(s): E78.00 - Pure hypercholesterolemia, unspecified Category: Medical Plan: Avoid fried foods, chicken skin, eggs, butter margarine, pastries and meat. Be it pork or beef they have a lot of cholesterol atorvastatin 80 mg once a day LDL goal of less than 100 and triglyceride of less than 150 (4) Right renal artery stenosis: Code(s): I70.1 - Atherosclerosis of renal artery Category: Medical Plan: Continuing to monitor only and continue to monitor blood pressure. Plan History of Present Illness The patient is an 79-year-old female presenting for follow-up of her chronic conditions, including hypertension and diabetes management. Her essential hypertension is complicated by white coat syndrome and anxiety, while her diabetes mellitus is well controlled with an A1c of 5.5%. She has a history of atherosclerosis in the renal arteries but no current evidence of renal artery stenosis or hyperaldosteronism. Anxiety and claustrophobia have impacted the imaging investigation plan. Her hypertension management includes medications like hydralazine and aldectazide with a systolic goal of 140-150 mmHg. She reports uncertainty about her olmesartan regimen. A recent assessment of her diabetes revealed potential discontinuation of metformin following successful glucose control and weight loss. Her medical history includes treated hypercholesterolemia, a past pulmonary embolism, and resolved anemia. Colonoscopy follow-ups have been affected by her reluctance. Recent labs indicate stable renal function and normal blood counts and electrolytes, alongside controlled LDL at 74 mg/dL. Health Maintenance - Last colonoscopy in October 2019, findings of tubular adenoma. Follow-up declined by the patient. - Most recent mammogram was declined. - Anemia resolved; last blood work shows normal blood count. - Normal renal function as of November. - Folic acid levels normalized by December 2023. - LDL goal of less than 100 mg/dL; current level is 74 mg/dL. - Patient encouraged to maintain a no-sodium diet for blood pressure management. Social History - Reports significant anxiety and claustrophobia impacting recommended imaging studies. - Indications of white coat syndrome affecting health visits. Review of Systems - Gastrointestinal: Denies nausea currently, but reports occasional gastrointestinal discomfort managed by taking medication with food. - Respiratory: Denies coughing, shortness of breath, or other respiratory issues. - Neurological: Denies current mood disturbances; reports improved mood. - Musculoskeletal: Reports knee discomfort. - Ophthalmologic: Noted a minor blood-related issue in the eye during an eye exam. Physical Exam Results - Labs: - Normal blood count and electrolytes as of December 11 - Hemoglobin A1c at 5.5% - LDL of 74 mg/dL in August 2024 - Tests and Diagnostics: - History of renal artery atherosclerosis confirmed via Doppler; no current evidence of hyperaldosteronism or stenosis. Plan Managing the patient's hypertension involves maintaining a careful balance due to her white coat hypertension and anxiety. Current medications include hydralazine and aldectazide, while the use of olmesartan needs further verification. Her diabetes, previously managed with metformin, may be discontinued with her consensual decision given the maintenance of excellent glucose control and noticeable weight loss. Continuous cholesterol monitoring will proceed, focusing on atorvastatin therapy. Engagement with the patient about her reluctance for colonoscopy follow-ups will continue to encourage future health maintenance. Investigating the recent ophthalmic findings linked to her hypertension will be necessary. Coordination and agreement with the patient will guide any changes to her medication regimen. Patient was informed and verbally consented to the use of an ambient scribe for clinic note documentation during this visit. Discussion Notes I discussed with the patient the ongoing management of her hypertension and diabetes. We addressed her anxiety and claustrophobia, which affects her ability to consent to required imaging studies like CT angiogram or MRA and discussed ongoing medication management for hypertension including hydralazine, aldectazide, and potentially olmesartan. Regarding her diabetes, we reviewed her stabilized A1c results and agreed on trialing the discontinuation of metformin based on her consent and understanding of monitoring risks like blood glucose rising above 150 mg/dL. We explored the possibility of revisiting follow-up colonoscopies in due course while she maintains current cholesterol management strategies. I recommended checking regularly for new or worsening symptoms, especially concerning vision linked to hypertension. Communication through the patient portal was encouraged should she experience exacerbating conditions or medication uncertainties. Patient Instructions - Continue current medication regimen, clarify olmesartan usage. - Monitor blood glucose levels; keep an eye on levels exceeding 150 mg/dL. - Maintain a low-sodium diet and monitor blood pressure regularly. - Finish current folic acid supplements; discontinue thereafter. - Communicate via portal if hypertension or glucose levels become concerning. - Report any new or worsening symptoms, particularly related to vision. - Consider follow-up with recommended tests when anxiety and comfort allow. Orders: Orders AMB Hemoglobin A1c Today E11.65 - Type 2 diabetes mellitus with hyperglycemia Medications: Discontinued folic acid Discontinued Reason: Doctor's Order 1 mg PO DAILY 90 tabs 3RF E11.65 - Type 2 diabetes mellitus with hyperglycemia metformin Discontinued Reason: Doctor's Order 500 mg PO DAILY 90 tabs 3RF E11.65 - Type 2 diabetes mellitus with hyperglycemia
[2024-12-31 10:59] VITALS: BP 140/80; PULSE 100; TEMP 36.4; O2SAT 98
--- OUTSIDE RECORDS SUMMARY | 2024-12-31 12:17 | XMS_ITS | Clinical Summary ---
Author Organization [facility], Address [address] [place] [address] Phone Care Team Providers Care Field Marketing Director Name Role Phone Erika De La O MD Primary Care Provider [phone] Allergies No known active allergies Medications atorvastatin [...] patient's age to complete this topic Insurance [facility] MEDICARE Care Teams Field Marketing Director Relationship Specialty Start Date End Date Erika De La O MD [facility] [address] ROSALVA ARTEAGA PCP - General 08/21/19
== END 2024-12-31 11:49 | disposition home or self-care (01) ==
LOC: HO.HMCH 10:44
PROVIDERS: PCP Internal Medicine; Visit Provider Internal Medicine
DX: E11.65 Type 2 diabetes mellitus with hyperglycemia (principal); I10 Essential (primary) hypertension; E78.00 Pure hypercholesterolemia, unspecified; I70.1 Atherosclerosis of renal artery

== ENCOUNTER → 2024-12-31 10:44 | Outpatient (BNVA) | payer MEDICARE, OTHER, SELFPAY | PROVIDERS: PCP Internal Medicine; Visit Provider Internal Medicine | DX: E11.65 Type 2 diabetes mellitus with hyperglycemia (principal); E78.00 Pure hypercholesterolemia, unspecified; I10 Essential (primary) hypertension; I70.1 Atherosclerosis of renal artery | CPT/HCPCS: 83036; 99212 ==

== ENCOUNTER 2025-04-03 11:07 | Outpatient (AMB) | payer MEDICARE, OTHER, SELFPAY ==
[2025-04-03 11:11] VITALS: BP 138/76; PULSE 94; O2SAT 99
--- NOTE | 2025-04-03 11:11 | MHC.PC.OV ---
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: No Accompanied by: Self / Same As Patient Allergies rosuvastatin Allergy (Unknown, Verified 04/03/25 11:12) Unknown tramadol Allergy (Unknown, Verified 04/03/25 11:12) joint pain Medication List - Last Reconciled 04/03/25 by Erika De La O MD acetaminophen (Tylenol Extra Strength) 1,000 mg PO Q6H PRN atorvastatin 80 mg PO DAILY blood sugar diagnostic As directed check the blood sugar once a day [employer] ULTRA TEST STRIPS cholecalciferol (vitamin D3) 50 mcg PO DAILY colesevelam (WelChol) 1,875 mg (3 x 625 mg) PO BID 90 days zulma.stocking,knee,reg,xlrg As directed 20-30 mm hg folic acid 1 mg PO DAILY hydralazine 50 mg PO TID lancets ([employer] Lancing Devices) check the BS once a day lancets (FreeStyle Lancets) As directed check the BS QD metformin 500 mg PO DAILY olmesartan 10 mg (1/2 x 20 mg) PO DAILY rivaroxaban (Xarelto) 20 mg PO DAILY spironolacton-hydrochlorothiaz 25-25 mg 1 tab PO DAILY Tobacco use date assessed: 04/03/25 Fall risk assessment: No Falls in past year Last assessed Fall Risk: 04/03/25 Dental Screening Dental Screen Date: 04/03/25 Did you have a dental visit in the last 12 months?: Yes Did you have a dental problem in the last 6 months where you did not have access to dental care?: No Was dental information given to patient?: Patient has dentist [facility] Medical History (Updated 09/17/24 @ 10:30 by Erika De La O MD) Medicare annual wellness visit, initial Facial basal cell cancer Peripheral vascular disease Hypercholesterolemia Diabetic nephropathy Gout History of pulmonary embolism DVT (deep venous thrombosis) Osteoarthritis Hypertension Type 2 diabetes mellitus with hyperglycemia Surgical History History of root canal procedure History of tooth extraction History of arthroscopy of right knee Family History Father Diabetes CVD (cardiovascular disease) Stroke Mother Hypertension Social History Housing: House Alcohol intake: current Alcohol intake frequency: 0-2 drinks per day Alcohol type: wine Patient Tobacco Use Status: Never used Tobacco e-Cigarette/Vaping Use: Never Used Second Hand Smoke Exposure: No service: No Current occupational status: retired Cognitive needs: Yes (Cane) Hearing needs: No Vision needs: Yes Questionnaire PHQ-9 Over the last 2 weeks, how often have you been bothered by any of the following problems? 1. Little interest or pleasure in doing things: not at all 2. Feeling down, depressed, or hopeless: not at all 3. Trouble falling or staying asleep, or sleeping too much: not at all 4. Feeling tired or having little energy: not at all 5. Poor appetite or overeating: not at all 6. Feeling bad about yourself - or that you are a failure or have let yourself or your family down: not at all 7. Trouble concentrating on things, such as reading the newspaper or watching television: not at all 8. Moving or speaking so slowly that other people could have noticed. Or the opposite - being so fidgety or restless that you have been moving around a lot more than usual: not at all 9. Thoughts that you would be better off or of hurting yourself in some way: not at all Total score: 0 Source: Developed by Drs. Yahir Jones, Shi Godfrey, Vasile Antonio and colleagues, with an educational jose francisco from [employer]. Thrive Questionnaire Date Thrive assessed: 04/03/25 I am a: Patient What is your living situation today?: I have a steady place to live Within the past 12 months, did the food you bought not last and you didn't have the money to get more?: Never true Within the past 12 months, did you worry whether your food would run out before you got money to buy more?: Never true Do you have trouble paying for medicines?: No Do you have trouble getting transportation to medical appointments?: No Do you have trouble paying your heating and electricity bill?: No Do you have trouble taking care of your child, family member or friend?: No Do you have trouble with day-to-day activities such as bathing, preparing meals, shopping, managing finances, etc.?: No Are you currently unemployed and looking for a job?: No Are you interested in more education?: No Please select the resources that you would like help with: None Currently or been in a relationship where the following occur: No concerns reported THRIVE Score: 0 AUDIT C Alcohol Use Questionnaire (AUDIT-C) 1. How often do you have a drink containing alcohol?: 4 or more times a week 2. How many drinks containing alcohol do you have on a typical day when you are drinking?: 1 or 2 3. How often do you have six or more drinks on one occasion?: Never Total Score: 4 JOSEF-7 AMB Questionnaire JOSEF-7 Date JOSEF - 7 assessed: 04/03/25 Feeling nervous, anxious, or on edge: 0 = Not at all Not being able to stop or control worryin = Not at all Worrying too much about different things: 0 = Not at all Trouble relaxin = Not at all Being so restless that it is hard to sit still: 0 = Not at all Becoming easily annoyed or irritable: 0 = Not at all Feeling afraid as if something awful might happen: 0 = Not at all Total JOSEF-7 score (0-4 normal; 5-9 mild; 10-14 moderate; 15-21 severe): 0 Source: Developed by Drs. Yahir Jones, Shi Godfrey, Vasile Antonio and colleagues, with an educational jose francisco from [employer]. Physical exam (Primary Care) Vital Signs: Last Vital Signs Pulse 94 04/03/25 11:11 BP 138/76 04/03/25 11:11 Pulse Ox 99 04/03/25 11:11 Oxygen Delivery Method Room Air 04/03/25 11:11 Tobacco/Smoking Status: Tobacco use Status Tobacco use date assessed 04/03/25 04/03/25 11:16 Patient Tobacco Use Status Never used Tobacco 04/03/25 11:16 e-Cigarette/Vaping Use Never Used 04/03/25 11:16 PHQ-9: PHQ-9 Score PHQ-9: Total score 0 04/03/25 11:29 Thrive Assessment: Date of Thrive Assessment Date Thrive assessed 04/03/25 04/03/25 11:16 Currently or been in a relationship where the following occur: No concerns reported Const General: alert; No acute distress Eyes Conjunctivae: conjunctivae normal Resp Auscultation: clear to auscultation bilaterally Cardio Rate: regular rate Rhythm: regular rhythm GI Inspection: Yes normal to inspection Extrem General: Yes normal to inspection and No edema Results AMB Hemoglobin A1c AMB Hemoglobin A1c 5.8 % Last Edit by HONORIO Belcher on 04/03/25 11:29 Results Reviewed Results Reviewed: Laboratory Last Values Hgb A1c (Clinic) 5.8 % (4.0-6.0) 04/03/25 11:19 Coding Level of Care Code Est Pt Level 4 (77625) Complex EM visit Add On G2211 Diagnoses Type 2 diabetes mellitus with hyperglycemia, without long-term current use of insulin E11.65 Diabetes mellitus long-term insulin use: without regional 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 Hemoglobin A1c goal of less than 7.0. Patient is diet controlled (2) History of pulmonary embolism: Comment: September 2007 Code(s): Z86.711 - Personal history of pulmonary embolism Category: Medical Plan: Continue on anticoagulation and to monitor renal function twice a day year (3) Hypercholesterolemia: Code(s): E78.00 - Pure hypercholesterolemia, unspecified Category: Medical Plan: Avoid fried foods, chicken skin, eggs, butter margarine, pastries and meat. Be it pork or beef they have a lot of cholesterol LDL goal of less than 100 and triglyceride of less than 150 August was last blood work patient is on atorvastatin 80 mg once a day Welchol. (4) Hypertension: Code(s): I10 - Essential (primary) hypertension Category: Medical Qualifiers: Hypertension type: essential hypertension Qualified Code(s): I10 - Essential (primary) hypertension Plan: Continue with blood pressure medication. Decrease salt intake and exercise patient on hydralazine 50 mg 3 times a day olmesartan 10 mg once a day and spironolactone hydrochlorothiazide (5) Major depression: Code(s): F32.9 - Major depressive disorder, single episode, unspecified Category: Medical Qualifiers: Active/Remission status: currently active Major depression episode severity: mild Major depression recurrence: single episode Qualified Code(s): F32.0 - Major depressive disorder, single episode, mild Plan: Stable Plan History of Present Illness The patient is an 79-year-old female presenting for a follow-up visit. She has a history of diabetes mellitus, which is currently diet-controlled, with a hemoglobin A1c goal of less than 7.0%. Her last hemoglobin A1c in December was 5.5, indicating good control. The patient also has a history of hypertension, managed with hydralazine, losartan, and spironolactone hydrochlorothiazide. Her blood pressure is reported to be stable. She experienced a pulmonary embolism in September 2007 and is currently on anticoagulation therapy. Renal function is stable, and monitoring is planned twice a year. The patient has hypercholesterolemia, with an LDL goal of less than 100 mg/dL. Her LDL was 74 mg/dL in December, indicating good control. She has a history of peripheral vascular disease and right renal artery stenosis. The patient has been diagnosed with major depression, which she reports is much better now. Ophthalmology follow-up in January revealed no retinopathy, but she has cataracts and a retinal lesion. Preventative care includes a colonoscopy last done in October 2019, and the patient has declined further mammograms and bone density tests. Health Maintenance - Colonoscopy last done in October 2019 - Declined mammograms and bone density tests Social History - Reports using a cane for mobility outside the house to prevent falls - Engages in activities such as going up and down stairs Review of Systems - Cardiovascular: Denies chest pain, reports stable blood pressure - Respiratory: Reports occasional dyspnea - Musculoskeletal: Reports knee stiffness, uses Voltaren for relief - Ophthalmologic: Reports cataracts and retinal lesion, denies significant visual impairment - Psychiatric: Reports improved mood, denies current depressive symptoms Physical Exam Results - Labs: Normal blood count, normal electrolytes, stable renal function, hemoglobin A1c 5.5, LDL 74 mg/dL - Ophthalmology: No retinopathy, presence of cataracts and retinal lesion Plan The patient's diabetes mellitus is currently well-controlled with a hemoglobin A1c of 5.5, and the plan is to maintain this control with diet management and regular monitoring. Hypertension management includes continuation of current medications, including hydralazine, losartan, and spironolactone hydrochlorothiazide, with regular blood pressure monitoring to ensure stability. For hypercholesterolemia, the patient is on atorvastatin with an LDL goal of less than 100 mg/dL, and recent labs show an LDL of 74 mg/dL, indicating effective management. The patient will continue anticoagulation therapy due to a history of pulmonary embolism, and renal function will be monitored biannually to ensure stability. The patient has declined further mammograms and bone density tests, and preventative care will focus on maintaining current health status and monitoring for any changes. Ophthalmology follow-up is recommended to monitor cataracts and retinal lesions, with no current need for intervention. Patient was informed and verbally consented to the use of an ambient scribe for clinic note documentation during this visit. Discussion Notes During the visit, I discussed the patient's current management plans for diabetes, hypertension, and hypercholesterolemia, emphasizing the importance of maintaining control through diet, medication adherence, and regular monitoring. We reviewed the decision to decline further mammograms and bone density tests, and I advised on the importance of regular follow-ups to monitor her overall health status. I also recommended continued ophthalmology follow-up to monitor her cataracts and retinal lesions, ensuring no significant changes occur. Patient Instructions - Continue current diet to maintain diabetes control. - Take prescribed medications for hypertension and hypercholesterolemia as directed. - Monitor blood pressure regularly and report any significant changes. - Follow up with ophthalmology to monitor cataracts and retinal lesions. - Schedule regular follow-up appointments to monitor overall health. Orders: Orders Complete Blood Count Auto Diff 2 Months E78.00 - Pure hypercholesterolemia, unspecified Comprehensive Met. Panel 2 Months E78.00 - Pure hypercholesterolemia, unspecified Creatinine Urine 2 Months E11.65 - Type 2 diabetes mellitus with hyperglycemia, E78.00 - Pure hypercholesterolemia, unspecified Microalbumin, Random (w Creat) 2 Months E11.65 - Type 2 diabetes mellitus with hyperglycemia, E78.00 - Pure hypercholesterolemia, unspecified Free T4 (Free Thyroxine) 2 Months E78.00 - Pure hypercholesterolemia, unspecified Vitamin B12 and Folate 2 Months E78.00 - Pure hypercholesterolemia, unspecified Vitamin D 25-OH Total 2 Months E78.00 - Pure hypercholesterolemia, unspecified AMB Hemoglobin A1c Today Z13.9 - Encounter for screening, unspecified Thyroid Stimulating Hormone 2 Months E78.00 - Pure hypercholesterolemia, unspecified Hemoglobin A1c 2 Months E78.00 - Pure hypercholesterolemia, unspecified Lipid Panel 2 Months E78.00 - Pure hypercholesterolemia, unspecified Medications: Refilled metformin 500 mg PO DAILY 90 tabs 3RF E11.65 - Type 2 diabetes mellitus with hyperglycemia folic acid 1 mg PO DAILY 90 tabs 3RF E78.00 - Pure hypercholesterolemia, unspecified
--- OUTSIDE RECORDS SUMMARY | 2025-04-03 12:54 | XMS_ITS | Clinical Summary ---
Author Organization [facility], Address [address] [place] [address] Phone Care Team Providers Care Roll Inspector Name Role Phone Erika De La O MD Primary Care Provider [phone] Allergies No known active allergies Medications atorvastatin [...] Due Date Last Done Comments Pneumococcal Vaccine: 50+ Ye ars (1 of 2 - PCV) 1964 Diabetes: Hemoglobin A1C 09/28/2019 Diabetes: Ophthalmology Exam 09/28/2019 Diabetes: Pedal Pulse Checked 09/28/2019 Diabetes: Sensory Foot Exam 09/28/2019 Diabetes: Visual Foot Exam 09/28/2019 Influenza Vaccine (Season Ended) 2025 Hepatitis B Vaccine Aged Out No longe r eligible based on patient's age to complete this topic Insurance [facility] Medicare Care Teams Roll Inspector Relationship Specialty Start Date End Date Erika De La O MD [facility] [address] [place] PCP - General 08/21/19
== END 2025-04-03 11:43 | disposition home or self-care (01) ==
LOC: HO.HMCH 11:08
PROVIDERS: PCP Internal Medicine; Visit Provider Internal Medicine
DX: E11.65 Type 2 diabetes mellitus with hyperglycemia (principal); Z86.711 Personal history of pulmonary embolism; E78.00 Pure hypercholesterolemia, unspecified; I10 Essential (primary) hypertension; F32.0 Major depressive disorder, single episode, mild; Z13.9 Encounter for screening, unspecified

== ENCOUNTER → 2025-04-03 11:07 | Outpatient (BNVA) | payer MEDICARE, OTHER, SELFPAY | PROVIDERS: PCP Internal Medicine; Visit Provider Internal Medicine | DX: E11.65 Type 2 diabetes mellitus with hyperglycemia (principal); E78.00 Pure hypercholesterolemia, unspecified; I10 Essential (primary) hypertension; F32.0 Major depressive disorder, single episode, mild; Z86.711 Personal history of pulmonary embolism | CPT/HCPCS: 83036; 99212 ==

== ENCOUNTER 2025-05-31 09:10 | Outpatient (REF) | payer MEDICARE, OTHER, SELFPAY ==
--- OUTSIDE RECORDS SUMMARY | 2025-05-31 09:26 | XMS_ITS | Clinical Summary ---
Author Organization [facility], Address [address] [place] [address] Phone Care Team Providers Care Director Enterprise Data Architecture Name Role Phone Erika De La O MD Primary Care Provider [phone] Allergies No known active allergies Medications atorvastatin [...] Visual Foot Exam 09/28/2019 Influenza Vaccine (#1) 2025 Hepatitis B Vaccine Aged Out No longe r eligible based on patient's age to complete this topic Insurance [facility] Medicare Care Teams Director Enterprise Data Architecture Relationship Specialty Start Date End Date Erika De La O MD [facility] [address] [place] PCP - General 08/21/19
--- OUTSIDE RECORDS SUMMARY | 2025-05-31 09:26 | XMS_ITS | Clinical Summary ---
Author Organization [facility] Address [address] [address] Phone Care Team Providers Care Retail Event And Sales Assistant Name Role Phone Unknown, Unknown Primary Care Provider Martin mckenzie Social History Tobacco Use Types Packs/Day Years Used Date Smoking Tobacco: Never Assessed Education Answer Date Recorded Are you interested in more education? Not on diana e 02/11/2023 Are you concerned about learning? Not on file 02/11/2023 No 02/11/2023 No 02/11/2023 Digital Access Answer Date Recorded No 03/15/2023 No 03/15/2023 No 03/15/2023 Reliable internet access at home? Not on file 03/15/2023 Device with a working camera? Not on file Comments Unknown Sex and Gender Information Value Date Recorded Sex Assigned at Not on file Legal Sex Female 3:52 PM EDT Gender Identity Not on file Sexual Orientation Not on file Plan of Treatment Not on file Medical Devices Not on file Insurance [facility] TOTAL CHOICE INDEMNITY MEDICARE PART A & B [employer] TOTAL CHOICE INDEMNITY MEDICARE PART A & B [employer] TOTAL CHOICE INDEMNITY MEDICARE PART A & B [employer] TOTAL CHOICE INDEMNITY MEDICARE PART A & B [employer] TOTAL CHOICE INDEMNITY MEDICARE PART A & B [facility] TOTAL CHOICE INDEMNITY MEDICARE PART A & B [facility] TOTAL CHOICE INDEMNITY MEDICARE PART A & B [facility] TOTAL CHOICE INDEMNITY MEDICARE PART A & B [facility] TOTAL CHOICE INDEMNITY MEDICARE PART A & B Care Teams Retail Event And Sales Assistant Relationship Specialty Start Date End Date Unknown, Unknown, PCP - General 04/10/19 Additional Source Comments The information contained in this document represents components of the legal health record. It is not the complete legal health record.[facility]
--- OUTSIDE RECORDS SUMMARY | 2025-05-31 09:26 | XMS_ITS | Patient Health Record ---
Author Organization [facility] Address [address] [place] [address] Care Team Providers Care Program Management Specialist Name Role Phone Erika De LaO MD Primary Care Provider Yahir Lee [phone] Reason For Referral No Information Medications Medication SIG (Take, Route, Frequency, Duration) Notes Start Date End Date Status Xarelto 20 MG TAKE 1 TABLET BY MOUTH EVERY DAY WITH FOOD Oral for 90 Active amLODIPine-Olmesartan 10-40 MG TAKE 1 TABLET BY MOUTH EVERY DAY Oral for 90 Active traMADol HCl 50 MG (Schedule IV Drug) TAKE 1 TABLET BY MOUTH THREE TIMES A DAY NEEDED Oral for 90 Active Folic Acid 1 MG TAKE 1 TABLET BY MOUTH EVERY DAY Oral for 90 Active Colesevelam HCl 625 MG 1 tablets with meals Orally Three times a day Active Fish Oil 1000 MG 1 capsule Orally Once a day for 30 day(s) Active metFORMIN HCl 500 MG 1 tablet with a meal Orally Once a day for 30 day(s) Not-Taking Atorvastatin Calcium 80 MG TAKE 1 TABLET BY MOUTH EVERY DAY Oral for 90 Active hydrALAZINE HCl 10 MG TAKE 1 TABLET BY MOUTH THREE TIMES A DAY Orally twice a day Active hydroCHLOROthiazide 25 MG TAKE 1 TABLET BY MOUTH EVERY MORNING Oral for 90 Active Immunizations Vaccine Route Administration Date Status Comme nts Influenza Unknown 08/14/2019 Refused Social History Tobacco Use: Social History Observation Description Date Details (start date - stop date) Never Smoker NA - NA Tobacco Use/Smoking Question Answer Notes Patient is a nonsmoker Alcohol Screen Question Answer Notes Did you have a drink contain ing alcohol in the past year? Yes How often did you have a dri nk containing alcohol in the past year? 4 or more times a week (4 points) How many drinks did you have on a typical day when you were drinking in the past year? 1 or 2 drinks (0 point) How often did you have 6 or more drinks on one occasion in the past year? Never (0 point) Points 4 Interpretation Positive Section Notes: Nonsmoker; 2 glasses of wine at dinner Problems Problem Type SNOMED Code ICD Code Onset Dates Problem Status W/U Status Risk Notes Problem [id number] Positive colorectal cancer screening using Cologuard test (R19.5) Active confirmed Plan Of Treatment Future Test Test Name Order Date COLONOSCOPY 08/14/2019 Insurance Providers Payer Name Payer Address Payer Phone Subscriber Number Group Number Insured Name Patient Relationship to Insured Coverage Start Date Coverage End Date MEDICARE OF [place] [address] [place] [address] [id number] RAFAELA DOOLEY Self - patient is the insured [facility] [employer] [address] [place] [address] [id number] RAFAELA DOOLEY Self - patient is the insured Medical (General) History Medical History History ICD Code Hypertension NIDDM Denies NE,CVA,Lung disease,renal disease DVT and PE in 2017 Hyperlipidemia + Cologuard 2018 Surgical History Surgery Date(Month/Year) Knee surgery
[2025-05-31 11:01] LABS: Anion Gap 18 (12-20); Blood Urea Nitrogen 31 mg/dL (9-16); Calcium 9.7 mg/dL (8.4-10.2); Carbon Dioxide 19 mmol/L (22-29); Chloride 106 mmol/L (96-108); Cholesterol 167 mg/dL (<200); Estimated Glomerular Filt Rate > 60; HDL Cholesterol 78 mg/dL (>40); Potassium 4.7 mmol/L (3.3-5.1); Sodium 138 mmol/L (135-145); Triglycerides 67 mg/dL (<150)
== END 2025-05-31 09:11 | disposition home or self-care (01) ==
LOC: HO.HMGCLDS 09:10
PROVIDERS: PCP Internal Medicine; Visit Provider Internal Medicine Hypertension Specialist
DX: I70.1 Atherosclerosis of renal artery (principal); E78.00 Pure hypercholesterolemia, unspecified; I10 Essential (primary) hypertension
CPT/HCPCS: 36415; 80048; 80061

== ENCOUNTER 2025-06-04 09:56 | Outpatient (AMB) | payer MEDICARE, OTHER, SELFPAY ==
[2025-06-04 09:57] VITALS: BP 182/88; PULSE 102; O2SAT 99; BMI 25.4
--- NOTE | 2025-06-04 09:57 | HO.NEPHOV_ITS ---
Vital Signs 06/04/25 09:57 Height 5 ft 9 in Weight 172 lb BMI 25.4 BP 182/88 H Blood Pressure Location Lt brachial Position Sitting Pulse 102 H Pulse Source Pulse Oximeter Pulse Oximetry (%) 99 Oxygen Delivery Method Room Air Intake Visit Reasons: 6 MO FU/ LVM Dustless Operator Required: No Accompanied by: Self / Same As Patient Allergies rosuvastatin Allergy (Unknown, Verified 06/04/25 10:00) Unknown tramadol Allergy (Unknown, Verified 06/04/25 10:00) joint pain Medication List - Last Reconciled 06/04/25 by Jas May MD acetaminophen (Tylenol Extra Strength) 1,000 mg PO Q6H PRN atorvastatin 80 mg PO DAILY blood sugar diagnostic As directed check the blood sugar once a day CorepairTOUCH ULTRA TEST STRIPS cholecalciferol (vitamin D3) 50 mcg PO DAILY colesevelam (WelChol) 1,875 mg (3 x 625 mg) PO BID 90 days zulma.stocking,knee,reg,xlrg As directed 20-30 mm hg folic acid 1 mg PO DAILY hydralazine 50 mg PO TID lancets (4th aspect Lancing Devices) check the BS once a day lancets (FreeStyle Lancets) As directed check the BS QD metformin 500 mg PO DAILY olmesartan 10 mg (1/2 x 20 mg) PO DAILY rivaroxaban (Xarelto) 20 mg PO DAILY spironolacton-hydrochlorothiaz 25-25 mg 1 tab PO DAILY HPI Comments Details: Gillian is a pleasant 78 yr old woman with a history of longstanding hypertension. She is on 3 medications including hydralazine 25 mg b.i.d., Benicar 40 mg q.d. and HCTZ 25 mg. In spite of this blood pressure has been difficult to control. She had renal ultrasonogram which was suggestive of right-sided renal artery stenosis based on increased resistance. CT scan was ordered. However the posterior was not completed due to the inability to obtain IV access. After multiple attempts the venipuncture was abandoned and she was sent home. She has significant history of anxiety with high blood pressure. She has not checked her blood pressure at home. Apparently in the past she has had a 24 hour ABP M. I do not have access to the results. No headache nausea vomiting. No fever She has lost about 25 lb and her appetite has decreased. All the recent blood work was reviewed. This is a family history of diabetes mellitus. 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 01/31/24 Currently having allergic symptoms She has monitored her BP at home and readings are sub optimal 02/14/2024. Gillian called me last week with elevated blood pressure readings. She is tolerating Aldactazide. I increased hydralazine from 25 mg b.i.d. up to 50 mg t.i.d.. She has been watching her blood pressure at home and blood pressure is better controlled with a systolic blood pressure around 160-140 mm Hg. She has lost about 10 lb in the last 1 month 03/13/24 She is feeling better today. No more allergy symptoms. She completed dose of fexofenadine. After stopping the fexofenadine the nausea is improved. She has been monitoring blood pressure at home. Overall systolic blood pressure is around 140-140 mm Hg. Occasionally readings have been as low as 117 mm Hg systolic. 05/07/2024. Overall she is feeling better. Home blood pressures are acceptable ;She checks her twice and the 2nd readings usually at least 20 points LEs 12/13/2024. Overall doing well. No new issues. 06/03/25 : Home BP has been in the normal range. Monitors once a week NO change in meds [facility] Medical History (Updated 09/17/24 @ 10:30 by Erika De La O MD) Medicare annual wellness visit, initial Facial basal cell cancer Peripheral vascular disease Hypercholesterolemia Diabetic nephropathy Gout History of pulmonary embolism DVT (deep venous thrombosis) Osteoarthritis Hypertension Type 2 diabetes mellitus with hyperglycemia Surgical History History of root canal procedure History of tooth extraction History of arthroscopy of right knee Family History Father Diabetes CVD (cardiovascular disease) Stroke Mother Hypertension Social History Housing: House Alcohol intake: current Alcohol intake frequency: 0-2 drinks per day Alcohol type: wine Patient Tobacco Use Status: Never used Tobacco e-Cigarette/Vaping Use: Never Used Second Hand Smoke Exposure: No service: No Current occupational status: retired Cognitive needs: Yes (Cane) Hearing needs: No Vision needs: Yes Physical Exam Vital Signs: Last Vital Signs Pulse 102 H 06/04/25 09:57 BP 182/88 H 06/04/25 09:57 Pulse Ox 99 06/04/25 09:57 Oxygen Delivery Method Room Air 06/04/25 09:57 BMI result Body Mass Index 25.4 Const General: comfortable; No acute distress Orientation/consciousness: patient oriented x3 Eyes General: appearance normal, both eyes and all related structures Visual Gonzalez: normal visual gonzalez by confrontation Neck Neck: Yes supple and Yes no JVD Resp Effort & Inspection: normal respiratory effort and respiratory effort not dec reased Cardio Palpation: no palpable S3 and no palpable S4 Heart sounds: no rubs GI Inspection: Yes normal to inspection Palpation (GI): Soft to palpation Percussion: Yes normal to percussion Auscultation: normal bowel sounds General: Yes no CVA tenderness Back/Spine/Pelvis Back: no CVA tenderness Skin General skin exam: no petechiae and no purpura Neuro General: patient oriented x3 and no focal motor deficits Extrem General: No clubbing and No edema Results Reviewed Nephrology Results: Hgb, (12.0-16.0) 12.5 g/dl 12/11/24 WBC, (4.8-10.8) 8.1 X10*3/uL 12/11/24 Plt Count, (160-400) 315 X10*3/uL Δ 12/11/24 Sodium, (135-145) 138 mmol/L 05/31/25 Potassium, (3.3-5.1) 4.7 mmol/L 05/31/25 Chloride, (96-108) 106 mmol/L 05/31/25 Carbon Dioxide, (22-29) 19 mmol/L L 05/31/25 BUN, (9-16) 31 mg/dL H 05/31/25 Creatinine, (0.5-1.4) 0.65 mg/dL 05/31/25 Calcium, (8.4-10.2) 9.7 mg/dL 05/31/25 Renal US 11/03/23 Assessment & Plan Assessment & Plan (1) Right renal artery stenosis: Code(s): I70.1 - Atherosclerosis of renal artery Category: Medical (2) Hypertension: Code(s): I10 - Essential (primary) hypertension Category: Medical Qualifiers: Hypertension type: essential hypertension Qualified Code(s): I10 - Essential (primary) hypertension (3) Hypercholesterolemia: Code(s): E78.00 - Pure hypercholesterolemia, unspecified Category: Medical Plan . 79yr old woman with resistant hypertension. Doppler of renal arteries was suggestive of possible right renal artery stenosis. PA and PRA ratios were normal. Not suggestive of hyperaldosteronism or renal artery stenosis. Superimposed white coat effect superimposed on underlying HTN is still a possibility ;Contributing factor would be anxiety. Repeat PA/PRA and metanephrine levels are pending Keep Aldactazide 25-25 1 a day Hydralazine 50 mg t.i.d. for now. If BP is difficult to control [facility] meds, we will proceed with further workup including a CT angiogram or an MRA of renal arteries. We discussed CT angiogram and she wants to wait on this. Due to anxiety and claustrophobia we will hold off on MRA at this time. Needs to stay on low-sodium diet. Encouraged her to continue monitoring of blood pressure at home. I will be happy to maintain systolic blood pressure around 140 -150 mm Hg for now. Would certainly avoid blood pressures in the range of 110 since he has not able to tolerate this at this time. I have asked her to call me with a systolic blood pressure stays above 160 mm Hg. 08/13/24 BP well controlled,No changes today. Stay on low salt diet 12/13/2024. Initial blood pressure was elevated. Repeat blood pressure was better. Gillian has a history of resistant hypertension with superimposed white coat effect. Encouraged her to keep monitoring blood pressure at home. No changes were made. 06/04/25 BP is acceptable based on home readings White coat effect Renal function normal at baseline NO changes today . Coding Level of Care Code Est Pt Level 4 (11516) Diagnoses Right renal artery stenosis I70.1 Essential hypertension I10 Hypertension type: essential hypertension Hypercholesterolemia E78.00
--- OUTSIDE RECORDS SUMMARY | 2025-06-04 11:05 | XMS_ITS | Clinical Summary ---
Author Organization [facility], Address [address] [place] [address] Phone Care Team Providers Care Network Professional Name Role Phone Erika De La O MD Primary Care Provider [phone] Allergies No known active allergies Medications atorvastatin [...] patient's age to complete this topic Insurance [facility] Medicare Care Teams Network Professional Relationship Specialty Start Date End Date Erika De La O MD JENNI [facility] [id number] [place] PCP - General 08/21/19
--- OUTSIDE RECORDS SUMMARY | 2025-06-04 11:05 | XMS_ITS | Clinical Summary ---
Author Organization [facility] Address [address] [address] Phone Care Team Providers Care Patternmaker Wood Name Role Phone Unknown, Unknown Primary Care [...] file Medical Devices Not on file Insurance [facility] TOTAL CHOICE INDEMNITY MEDICARE PART A & B [employer] TOTAL CHOICE INDEMNITY MEDICARE PART A & B [employer] TOTAL CHOICE INDEMNITY MEDICARE PART A & B [employer] TOTAL CHOICE INDEMNITY MEDICARE PART A & B [employer] TOTAL CHOICE INDEMNITY MEDICARE PART A & B [facility] TOTAL CHOICE INDEMNITY MEDICARE PART A & B [facility] TOTAL CHOICE INDEMNITY MEDICARE PART A & B [facility] TOTAL CHOICE INDEMNITY MEDICARE PART A & B [facility] TOTAL CHOICE INDEMNITY MEDICARE PART A & B Care Teams Patternmaker Wood Relationship Specialty Start Date End Date Unknown, Unknown, PCP - General 04/10/19 Additional Source Comments The information contained in this document represents components of the legal health record. It is not the complete legal health record.[facility]
--- OUTSIDE RECORDS SUMMARY | 2025-06-04 11:05 | XMS_ITS | Patient Health Record ---
Author Organization [facility] Address [address] [place] [address] Care Team Providers Care Oracle Endeca Consultant Name Role Phone Erika De La O MD Primary Care Provider Yahir Lee [phone] Reason For Referral No Information Medications Medication [...] Problem Status W/U Status Risk Notes Problem [id number] Positive colorectal cancer screening using Cologuard test (R19.5) Active confirmed Plan Of Treatment Future Test Test Name Order Date COLONOSCOPY 08/14/2019 Insurance Providers Payer Name Payer Address Payer Phone Subscriber Number Group Number Insured Name Patient Relationship to Insured Coverage Start Date Coverage End Date MEDICARE OF [place] [address] [place] [address] [id number] RAFAELA DOOLEY Self - patient is the insured [facility] INDEMNITY [address] [place] [address] [id number] RAFAELA DOOLEY Self - patient is the insured Medical (General) History Medical History History ICD Code Hypertension NIDDM Denies [place],CVA,Lung disease,renal disease DVT and PE in 2017 Hyperlipidemia + Cologuard 2018 Surgical History Surgery Date(Month/Year) Knee surgery
== END 2025-06-04 10:14 | disposition home or self-care (01) ==
LOC: HO.HKA 09:56
PROVIDERS: PCP Internal Medicine; Visit Provider Internal Medicine Hypertension Specialist
DX: I70.1 Atherosclerosis of renal artery (principal); I10 Essential (primary) hypertension; E78.00 Pure hypercholesterolemia, unspecified
CPT/HCPCS: 99214

== ENCOUNTER → 2025-06-04 09:56 | Outpatient (BNVA) | payer MEDICARE, OTHER, SELFPAY | PROVIDERS: PCP Internal Medicine; Visit Provider Internal Medicine Hypertension Specialist | DX: I1A.0 Resistant hypertension (principal); I70.1 Atherosclerosis of renal artery; E78.00 Pure hypercholesterolemia, unspecified | CPT/HCPCS: 99212 ==

== ENCOUNTER 2025-07-31 10:38 | Outpatient (REF) | payer MEDICARE, OTHER, SELFPAY ==
--- OUTSIDE RECORDS SUMMARY | 2025-07-31 12:41 | XMS_ITS | Clinical Summary ---
Author Organization [facility] Address [address] [address] Phone Care Team Providers Care Shoveler Name Role Phone Unknown, Unknown Primary Care [...] file Medical Devices Not on file Insurance [facility] TOTAL CHOICE INDEMNITY MEDICARE PART A & B [employer] TOTAL CHOICE INDEMNITY MEDICARE PART A & B [employer] TOTAL CHOICE INDEMNITY MEDICARE PART A & B [employer] TOTAL CHOICE INDEMNITY MEDICARE PART A & B [employer] TOTAL CHOICE INDEMNITY MEDICARE PART A & B [facility] TOTAL CHOICE INDEMNITY MEDICARE PART A & B [facility] TOTAL CHOICE INDEMNITY MEDICARE PART A & B [facility] TOTAL CHOICE INDEMNITY MEDICARE PART A & B [facility] TOTAL CHOICE INDEMNITY MEDICARE PART A & B Care Teams Shoveler Relationship Specialty Start Date End Date Unknown, Unknown, PCP - General 04/10/19 Additional Source Comments The information contained in this document represents components of the legal health record. It is not the complete legal health record.[facility]
--- OUTSIDE RECORDS SUMMARY | 2025-07-31 12:41 | XMS_ITS | Patient Health Record ---
Author Organization [facility] Address [address] [place] [address] Care Team Providers Care Accounting Administrator Name Role Phone Erika De La O MD Primary Care Provider Yahir Lee [phone] Reason For Referral No Information Medications Medication SIG (Take, Route, Frequency, Duration) Notes Start Date End Date Status Xarelto 20 MG TAKE 1 TABLET BY MOUTH EVERY DAY WITH FOOD Oral; Duration: 90 Active amLODIPine-Olmesartan 10-40 MG TAKE 1 TABLET BY MOUTH EVERY DAY Oral; Duration: 90 Active traMADol HCl 50 MG (Schedule IV Drug) TAKE 1 TABLET BY MOUTH THREE TIMES A DAY NEEDED Oral; Duration: 90 Active Folic Acid 1 MG TAKE 1 TABLET BY MOUTH EVERY DAY Oral; Duration: 90 Active Colesevelam HCl 625 MG 1 tablets with meals Orally Three times a day Active Fish Oil 1000 MG 1 capsule Orally Once a day; Duration: 30 day(s) Active metFORMIN HCl 500 MG 1 tablet with a meal Orally Once a day; Duration: 30 day(s) Not-Taking Atorvastatin Calcium 80 MG TAKE 1 TABLET BY MOUTH EVERY DAY Oral; Duration: 90 Active hydrALAZINE HCl 10 MG TAKE 1 TABLET BY MOUTH THREE TIMES A DAY Orally twice a day Active hydroCHLOROthiazide 25 MG TAKE 1 TABLET BY MOUTH EVERY MORNING Oral; Duration: 90 Active Immunizations Vaccine Route Administration Date [...] Problem Status W/U Status Risk Notes Problem Abnormal feces ([id number]) Positive colorectal cancer screening using Cologuard test (R19.5) Active confirmed Plan Of Treatment Future Test Test Name Order Date COLONOSCOPY 08/14/2019 Insurance Providers Payer Name Payer Address Payer Phone Subscriber Number Group Number Insured Name Patient Relationship to Insured Coverage Start Date Coverage End Date MEDICARE OF [place] [address] [facility] [address] [id number] RAFAELA DOOLEY Self - patient is the insured [facility] INDEMNI [address] [place] [address] [id number] RAFAELA DOOLEY Self - patient is the insured Medical (General) History Medical History History ICD Code Hypertension NIDDM Denies [place],CVA,Lung disease,renal disease DVT and PE in 2017 Hyperlipidemia + Cologuard 2018 Surgical History Surgery Date(Month/Year) Knee surgery
--- OUTSIDE RECORDS SUMMARY | 2025-07-31 12:41 | XMS_ITS | Clinical Summary ---
Author Organization [facility], Address [address] [place] [address] Phone Care Team Providers Care Lending Consultant Name Role Phone Erika De La O MD Primary Care Provider [phone] Allergies No known active allergies Medications atorvastatin [...] patient's age to complete this topic Insurance Pending [facility] To [facility] Medicare Care Teams Lending Consultant Relationship Specialty Start Date End Date Erika De La O MD JENNI [facility] [address] [place] PCP - General 08/21/19
[2025-07-31 13:07] LABS: MANUAL DIFF FLAG NO
[2025-07-31 13:19] LABS: Hematocrit 36.3 % (37.0-47.0); Hemoglobin 11.9 g/dl (12.0-16.0); Imm Gran Abs Auto 0.02 X10*3/uL (0.00-0.03); Imm Gran Pct Auto 0.3 % (0.0-0.4); Lymphocytes Absolute Auto 1.8 X10*3/uL (1.2-4.9); Mean Corpuscular HGB Conc 32.8 g/dl (31.0-35.0); Mean Corpuscular Hemoglobin 32.6 pg (27.0-33.0); Mean Corpuscular Volume 99.5 fL (80.0-98.0); NRBC Abs Auto 0.000 X10*3/uL (0.0-0.012); NRBC Pct Auto 0.0 /100WBC (0.0-0.2); Platelet Count 242 X10*3/uL (160-400); Red Blood Count 3.65 X10*6/uL (4.20-5.50); White Blood Count 6.0 X10*3/uL (4.8-10.8)
[2025-07-31 14:07] LABS: Alanine Aminotransferase 18 U/L (0-31); Albumin Level 4.5 g/dL (3.5-5.0); Alkaline Phosphatase 54 U/L (39-117); Anion Gap 16 (12-20); Aspartate Amino Transferase 27 U/L (5-31); Blood Urea Nitrogen 27 mg/dL (9-16); Calcium 9.7 mg/dL (8.4-10.2); Carbon Dioxide 19 mmol/L (22-29); Chloride 107 mmol/L (96-108); Cholesterol 188 mg/dL (<200); Estimated Glomerular Filt Rate > 60; Free T4 (Free Thyroxine) 0.98 ng/dL (0.71-1.85); HDL Cholesterol 89 mg/dL (>40); Potassium 4.9 mmol/L (3.3-5.1); Sodium 137 mmol/L (135-145); Thyroid Stimulating Hormone 0.77 uIU/mL (0.32-4.0); Total Protein 7.4 g/dL (6.5-8.0); Triglycerides 82 mg/dL (<150)
[2025-07-31 14:36] LABS: Folate 10.1 ng/mL (> or = 4.0); Vitamin B12 544 pg/mL (200-900)
== END 2025-07-31 10:39 | disposition home or self-care (01) ==
LOC: HO.HMGCLDS 10:38
PROVIDERS: PCP Internal Medicine; Visit Provider Internal Medicine
DX: E11.65 Type 2 diabetes mellitus with hyperglycemia (principal); E78.00 Pure hypercholesterolemia, unspecified
CPT/HCPCS: 36415; 80053; 80061; 82043; 82306; 82570; 82607; 82746; 83036; 84439; 84443; 85025

== ENCOUNTER 2025-08-08 09:48 | Outpatient (AMB) | payer MEDICARE, OTHER, SELFPAY ==
--- NOTE | 2025-08-08 09:52 | MHC.PC.OV ---
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 Accompanied by: Self / Same As Patient Allergies rosuvastatin Allergy (Unknown, Verified 08/08/25 09:53) Unknown tramadol Allergy (Unknown, Verified 08/08/25 09:53) joint pain Medication List - Last Reconciled 08/08/25 by Erika De La O MD acetaminophen (Tylenol Extra Strength) 1,000 mg PO Q6H PRN atorvastatin 80 mg PO DAILY blood sugar diagnostic As directed check the blood sugar once a day VisibleGains ULTRA TEST STRIPS cholecalciferol (vitamin D3) 50 mcg PO DAILY colesevelam (WelChol) 1,875 mg (3 x 625 mg) PO BID 90 days [email or web address],[email or web address],xlrg As directed 20-30 mm hg folic acid 1 mg PO DAILY hydralazine 50 mg PO TID lancets (Yaolan.comSoft Lancing Devices) check the BS once a day lancets (FreeStyle Lancets) As directed check the BS QD metformin 500 mg PO DAILY olmesartan 10 mg (1/2 x 20 mg) PO DAILY rivaroxaban (Xarelto) 20 mg PO DAILY spironolacton-hydrochlorothiaz 25-25 mg 1 tab PO DAILY Tobacco use date assessed: 08/08/25 Fall risk assessment: No Falls in past year Last assessed Fall Risk: 08/08/25 Dental Screening Dental Screen Date: 08/08/25 Did you have a dental visit in the last 12 months?: Yes Did you have a dental problem in the last 6 months where you did not have access to dental care?: No Was dental information given to patient?: Patient has dentist [facility] Medical History (Updated 09/17/24 @ 10:30 by Erika De La O MD) Medicare annual wellness visit, initial Facial basal cell cancer Peripheral vascular disease Hypercholesterolemia Diabetic nephropathy Gout History of pulmonary embolism DVT (deep venous thrombosis) Osteoarthritis Hypertension Type 2 diabetes mellitus with hyperglycemia Surgical History History of root canal procedure History of tooth extraction History of arthroscopy of right knee Family History Father Diabetes CVD (cardiovascular disease) Stroke Mother Hypertension Social History Housing: House Alcohol intake: current Alcohol intake frequency: 0-2 drinks per day Alcohol type: wine Patient Tobacco Use Status: Never used Tobacco e-Cigarette/Vaping Use: Never Used Second Hand Smoke Exposure: No service: No Current occupational status: retired Current occupational exposures/hazards: No Cognitive needs: Yes (Cane) Hearing needs: No Vision needs: Yes Questionnaire Thrive Questionnaire Date Thrive assessed: 03/27/25 I am a: Patient What is your living situation today?: I have a steady place to live Within the past 12 months, did the food you bought not last and you didn't have the money to get more?: Never true Within the past 12 months, did you worry whether your food would run out before you got money to buy more?: Never true Do you have trouble paying for medicines?: No Do you have trouble getting transportation to medical appointments?: No Do you have trouble paying your heating and electricity bill?: No Do you have trouble taking care of your child, family member or friend?: No Do you have trouble with day-to-day activities such as bathing, preparing meals, shopping, managing finances, etc.?: No Are you currently unemployed and looking for a job?: No Are you interested in more education?: No Please select the resources that you would like help with: None Currently or been in a relationship where the following occur: No concerns reported THRIVE Score: 0 AUDIT C Alcohol Use Questionnaire (AUDIT-C) 1. How often do you have a drink containing alcohol?: 4 or more times a week 2. How many drinks containing alcohol do you have on a typical day when you are drinking?: 1 or 2 3. How often do you have six or more drinks on one occasion?: Never Total Score: 4 JOSEF-7 AMB Questionnaire JOSEF-7 Date JOSEF - 7 assessed: 04/03/25 Source: Developed by Drs. Yahir Jones, Shi Godfrey, Vasile Antonio and colleagues, with an educational jose francisco from [employer]. Physical exam (Primary Care) Vital Signs: Last Vital Signs Pulse 73 08/08/25 09:53 BP 152/90 H 08/08/25 09:53 Pulse Ox 97 08/08/25 09:53 Oxygen Delivery Method Room Air 08/08/25 09:53 Tobacco/Smoking Status: Tobacco use Status Tobacco use date assessed 08/08/25 08/08/25 10:02 Patient Tobacco Use Status Never used Tobacco 08/08/25 10:02 e-Cigarette/Vaping Use Never Used 08/08/25 10:02 Thrive Assessment: Date of Thrive Assessment Date Thrive assessed 03/27/25 08/08/25 10:02 Currently or been in a relationship where the following occur: No concerns reported Const General: alert; No acute distress Eyes Conjunctivae: conjunctivae normal Resp Auscultation: clear to auscultation bilaterally Cardio Rate: regular rate Rhythm: regular rhythm GI Inspection: Yes normal to inspection Extrem General: Yes normal to inspection and No edema Coding Level of Care Code Est Pt Level 4 (25505) Complex EM visit Add On G2211 Diagnoses Type 2 diabetes mellitus with hyperglycemia, without long-term current use of insulin E11.65 Diabetes mellitus long-term insulin use: without 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 Price October, Code(s): E11.65 - Type 2 diabetes mellitus with hyperglycemia Category: Medical Qualifiers: Diabetes mellitus long-term insulin use: without long-term use Qualified Code(s): E11.65 - Type 2 diabetes mellitus with hyperglycemia Plan: Decrease the amount of carbohydrate intake, pasta, bread, rice and potatoes are all sugar and that is aside from all the sweet stuff, remember that fruits are good but they are Sweet also. Patient has lost lot of weight and has control the blood sugar with metformin 500 mg once a day (2) Hypertension: Code(s): I10 - Essential (primary) hypertension Category: Medical Qualifiers: Hypertension type: essential hypertension Qualified Code(s): I10 - Essential (primary) hypertension Plan: Continue with blood pressure medication. Decrease salt intake and exercise patient sees Nephrology on spironolactone/hydrochlorothiazide 25/25 olmesartan 10 mg once a day hydralazine 50 mg 3 times a day (3) Major depression: Code(s): F32.9 - Major depressive disorder, single episode, unspecified Category: Medical Qualifiers: Active/Remission status: currently active Major depression episode severity: mild Major depression recurrence: single episode Qualified Code(s): F32.0 - Major depressive disorder, single episode, mild Plan: Presently stable (4) Mild anemia: Code(s): D64.9 - Anemia, unspecified Category: Medical Plan: Continuing to monitor (5) Hypercholesterolemia: Code(s): E78.00 - Pure hypercholesterolemia, unspecified Category: Medical Plan: Avoid fried foods, chicken skin, eggs, butter margarine, pastries and meat. Be it pork or beef they have a lot of cholesterol takes atorvastatin 80 mg once a day Welchol. (6) History of pulmonary embolism: Comment: September 2007 Code(s): Z86.711 - Personal history of pulmonary embolism Category: Medical Plan: Continuing with anticoagulation with Xarelto Plan History of Present Illness The patient is an 80-year-old female presenting for follow-up of multiple chronic conditions including diabetes mellitus, hypertension, and major depression. The patient has a history of diabetes mellitus, which she manages with metformin 500 mg once daily. She has successfully controlled her blood sugar levels, with a recent blood sugar reading of 128 mg/dL and a hemoglobin A1c of 5.6%. She has also experienced significant weight loss, which has contributed to her improved glycemic control. Hypertension is another chronic condition for which the patient is under treatment. She is on a regimen that includes spironolactone/hydrochlorothiazide 25/25 mg, olmesartan 10 mg once daily, and hydralazine 50 mg three times daily. Her blood pressure is currently maintained at a systolic range of 140 to 150 mmHg. The patient has a history of pulmonary embolism from 2006 and is currently on anticoagulation therapy with Xarelto. She also has hypercholesterolemia, managed with atorvastatin 80 mg daily, and her LDL cholesterol is at 83 mg/dL. The patient has been diagnosed with renal artery stenosis, and recent Doppler studies suggested possible right medial artery stenosis, although hyperaldosteronism was not indicated. The patient reports mild anemia with a hemoglobin level of 11.9 g/dL, but her platelet count, white blood cell count, and electrolytes are within normal limits. She has proteinuria, which is being monitored as part of her renal function assessment. The patient has received the COVID-19 vaccination but has declined the flu shot. Health Maintenance - COVID-19 vaccination received - Declined flu vaccination Social History - Exercise: Patient uses a cane for mobility outside the home but not indoors. - Housing: Patient reports difficulty with parking and accessibility at medical facilities. Review of Systems - Cardiovascular: Denies chest pain, reports stable blood pressure control. - Endocrine: Reports controlled blood sugar levels. - Musculoskeletal: Reports knee pain, uses cane for mobility outside the home. - Hematologic: Reports mild anemia. Physical Exam Results - Labs: Hemoglobin 11.9 g/dL, blood sugar 128 mg/dL, hemoglobin A1c 5.6%, LDL cholesterol 83 mg/dL, normal platelet count, normal white blood cell count, normal electrolytes, creatinine 0.7 mg/dL. - Tests: Doppler studies suggestive of right medial artery stenosis. Plan Patient was informed and verbally consented to the use of an ambient scribe for clinic note documentation during this visit. 1. Diabetes Mellitus The patient is managing her diabetes mellitus with metformin 500 mg once daily, resulting in well-controlled blood sugar levels and a hemoglobin A1c of 5.6%. She has also achieved significant weight loss, contributing to her improved glycemic control. 2. Hypertension The patient's hypertension is managed with spironolactone/hydrochlorothiazide 25/25 mg, olmesartan 10 mg once daily, and hydralazine 50 mg three times daily. Her blood pressure is currently maintained at a systolic range of 140 to 150 mmHg. 3. Pulmonary Embolism The patient has a history of pulmonary embolism from 2006 and is currently on anticoagulation therapy with Xarelto. 4. Hypercholesterolemia The patient is managing her hypercholesterolemia with atorvastatin 80 mg daily, achieving an LDL cholesterol level of 83 mg/dL. 5. Renal Artery Stenosis The patient has been diagnosed with renal artery stenosis, with Doppler studies suggesting possible right medial artery stenosis. Hyperaldosteronism was not indicated in recent evaluations. 6. Anemia The patient reports mild anemia with a hemoglobin level of 11.9 g/dL, but her platelet count, white blood cell count, and electrolytes are within normal limits. 7. Proteinuria The patient has proteinuria, which is being monitored as part of her renal function assessment. 8. Preventative Care: Covid-19 Vaccination The patient has received the COVID-19 vaccination but has declined the flu shot. Discussion Notes Patient Instructions Medications: Refilled blood sugar diagnostic As directed check the blood sugar once a day ON[employer]OUCH ULTRA TEST STRIPS 100 ea 3RF E11.65 - Type 2 diabetes mellitus with hyperglycemia
[2025-08-08 09:53] VITALS: BP 152/90; PULSE 73; O2SAT 97
--- OUTSIDE RECORDS SUMMARY | 2025-08-08 11:15 | XMS_ITS | Clinical Summary ---
Author Organization [facility], Address [address] [place] [address] Phone Care Team Providers Care Vocational Rehab Consultant Name Role Phone Erika De La O MD Primary Care Provider [phone] Allergies No known active allergies Medications atorvastatin [...] patient's age to complete this topic Insurance [facility] Medicare Care Teams Vocational Rehab Consultant Relationship Specialty Start Date End Date Erika De La O MD [id number] [place] PCP - General 08/21/19
--- OUTSIDE RECORDS SUMMARY | 2025-08-08 11:15 | XMS_ITS | Clinical Summary ---
Author Organization [facility] Address [address] [address] Phone Care Team Providers Care Qa Test Lead Name Role Phone Unknown, Unknown Primary Care [...] file Medical Devices Not on file Insurance [facility] TOTAL CHOICE INDEMNITY MEDICARE PART A & B [employer] TOTAL CHOICE INDEMNITY MEDICARE PART A & B [employer] TOTAL CHOICE INDEMNITY MEDICARE PART A & B [employer] TOTAL CHOICE INDEMNITY MEDICARE PART A & B [employer] TOTAL CHOICE INDEMNITY MEDICARE PART A & B [facility] TOTAL CHOICE INDEMNITY MEDICARE PART A & B [facility] TOTAL CHOICE INDEMNITY MEDICARE PART A & B [facility] TOTAL CHOICE INDEMNITY MEDICARE PART A & B [facility] TOTAL CHOICE INDEMNITY MEDICARE PART A & B Care Teams Qa Test Lead Relationship Specialty Start Date End Date Unknown, Unknown, PCP - General 04/10/19 Additional Source Comments The information contained in this document represents components of the legal health record. It is not the complete legal health record.[facility]
== END 2025-08-08 10:53 | disposition home or self-care (01) ==
LOC: HO.HMCH 09:49
PROVIDERS: PCP Internal Medicine; Visit Provider Internal Medicine
DX: E11.65 Type 2 diabetes mellitus with hyperglycemia (principal); I10 Essential (primary) hypertension; F32.0 Major depressive disorder, single episode, mild; D64.9 Anemia, unspecified; E78.00 Pure hypercholesterolemia, unspecified; Z86.711 Personal history of pulmonary embolism

== ENCOUNTER → 2025-08-08 09:48 | Outpatient (BNVA) | payer MEDICARE, OTHER, SELFPAY | PROVIDERS: PCP Internal Medicine; Visit Provider Internal Medicine | DX: E11.65 Type 2 diabetes mellitus with hyperglycemia (principal); I10 Essential (primary) hypertension; F32.0 Major depressive disorder, single episode, mild; D64.9 Anemia, unspecified; E78.00 Pure hypercholesterolemia, unspecified; Z86.711 Personal history of pulmonary embolism | CPT/HCPCS: 99212 ==